=== PATIENT | female | born 1950 | race Caucasian/White ===

== ENCOUNTER → 2021-09-23 14:47 | Outpatient (BNVA) | payer MEDICARE, OTHER, SELFPAY | PROVIDERS: Family Provider Family Medicine; Visit Provider Family Medicine | DX: E78.5 Hyperlipidemia, unspecified (principal); E03.9 Hypothyroidism, unspecified | CPT/HCPCS: 80053; 80061; 84443; 85025 ==

== ENCOUNTER → 2021-10-19 15:49 | Outpatient (BNVA) | payer MEDICARE, OTHER, SELFPAY | PROVIDERS: Family Provider Family Medicine; PCP Family Medicine; Visit Provider Family Medicine | DX: F33.42 Major depressive disorder, recurrent, in full remission (principal); E78.5 Hyperlipidemia, unspecified; E03.9 Hypothyroidism, unspecified | CPT/HCPCS: 80053; 80061; 84443 ==

== ENCOUNTER → 2021-11-04 09:29 | Outpatient (BNVA) | payer MEDICARE, OTHER, SELFPAY | PROVIDERS: Family Provider Family Medicine; PCP Family Medicine; Referring Provider Family Medicine; Visit Provider Surgery | DX: Z12.11 Encounter for screening for malignant neoplasm of colon (principal) | CPT/HCPCS: 99024 ==

== ENCOUNTER 2021-11-16 15:30 | Outpatient (CLI) | payer MEDICARE, OTHER, SELFPAY ==
--- NOTE | 2021-11-16 15:38 | MM_ITS ---
WS: [id number] BILATERAL 3D TOMOSYNTHESIS DIGITAL SCREENING MAMMOGRAPHY WITH CAD CLINICAL INFORMATION: SCREEN HISTORY: Screening mammogram. No current complaints. COMPARISON: TECHNIQUE: Bilateral CC and MLO views. FINDINGS: Scattered fibroglandular densities bilaterally. Punctate and lucent centered calcifications. No suspi cious focal mass, asymmetry, calcifications, or architectural distortion. No evidence of malignancy. MM/[place] [id number] IMPRESSION: BI-RADS: 2-Benign FOLLOW UP: 1 Year Follow-up Recommend return to annual screening mammography.
== END 2021-11-16 15:31 | disposition home or self-care (01) ==
LOC: RAD 15:34
PROVIDERS: PCP Family Medicine; Visit Provider Family Medicine
DX: Z12.31 Encounter for screening mammogram for malignant neoplasm of breast (principal)
CPT/HCPCS: 77063; 77067

== ENCOUNTER 2021-12-08 08:08 | Day surgery (SDC) | payer MEDICARE, OTHER, SELFPAY ==
[2021-12-07 08:32] VITALS: BMI 27.8
[2021-12-08 08:35] VITALS: BP 142/83; PULSE 66; RESP 18; TEMP 36.3; O2SAT 98
[2021-12-08] MEDS: sodium chloride 0.9% 1,000 ML 30 ML IV (08:43)
--- NOTE | 2021-12-08 08:44 | P.HP_ITS ---
Providers/Chief Complaint Primary Care Provider: Lacey Manzano DO Chief Complaint: Need for screening colonoscopy History of Present Illness Muna Lynn is a 71 year old female who presents for her 10-year screening colonoscopy. She has no complaints. Review of Systems General: Reports: 10 or more systems reviewed and unremarkable except in HPI and below Medications/Allergies Home Medications Medication Instructions Recorded Confirmed Last Taken Type divalproex 250 mg tablet,delayed 250 mg PO DAILY #90 tab 06/24/21 12/08/21 12/07/21 Rx release nystatin 100,000 unit/gram topical 1 applic TOPICAL BID #60 g 09/23/21 12/08/21 12/07/21 Rx powder paroxetine HCl 20 mg tablet (Paxil) 20 mg PO DAILY #90 tab 10/19/21 12/08/21 12/07/21 Rx levothyroxine 75 mcg capsule 75 mcg PO DAILY #90 cap 10/22/21 12/08/21 12/07/21 Rx rosuvastatin 10 mg tablet 10 mg PO DAILY #90 tab 10/22/21 12/08/21 12/07/21 Rx Allergies Allergy/AdvReac Type Severity Reaction Status Date / Time Penicillins Allergy Mild ALGY-Rash Verified 12/08/21 08:29 Sulfa (Sulfonamide Allergy Mild ALGY-Rash Verified 12/08/21 08:29 Antibiotics) adhesive tape Allergy BLISTERS Verified 12/08/21 08:29 PFSH Acute 2 PFSH: Medical History Depression Dyslipidemia Hx of urethral stricture Hypothyroidism Onychomycosis Family History Father Stroke Hypertension Social History Smoking and tobacco status: never smoked Second hand smoke exposure: No Alcohol intake: former Vitals/I&O/Wt Last Vital Signs Temp 97.3 F L 12/08/21 08:35 Pulse 66 12/08/21 08:35 Resp 18 12/08/21 08:35 BP 142/83 12/08/21 08:35 Pulse Ox 98 12/08/21 08:35 Weight last 48 hrs Weight 178 lb Physical Exam Narrative: General : Patient is well developed , no acute distress, oriented x3 Head : Normal cephalic, a-traumatic. Ears : Pinnae and external canal are normal. Hearing is normal. Eyes : PERRLA, Sclera and injection are normal. No conjunctival discharge. Nose : Mucous membranes are without erythema. Throat : buccal mucosa is normal, gums are without significant recession or hypertrophy. Lungs : Equal chest rise bilaterally, no use of accessory muscles, trachea is midline. Cor : Rate and rhythm are normal. Abdomen : Soft, ND, NT, no g/r/m Extremities : No edema, no cyanosis or clubbing, dorsalis pedis pulses are present bilaterally, non-tender to palpation of calves. Upper extremities are normal bilaterally. Back : non-tender to palpation, no CVA tenderness. Neuro : CN II - XII intact, Upper and lower extremities have equal and full strength A&P Assessment and plan (1) Colon cancer screening: Status: Acute Plan Colonoscopy The risks and benefits of the procedure, including bleeding, infection, i ntestinal perforation requiring surgery, missed lesion, or explained to the patient. He is understanding of the risks and wishes to proceed. Attestations Medical Necessity Statement*: Patient will be discharged Coding Level of Care Code Acute Site Foreman for g Fwd Diagnoses Colon cancer screening Z12.11
--- NOTE | 2021-12-08 08:57 | ANES.PREANE2 ---
Pre-Anesthetic Assessment Height/Weight: Height 1.7 m Weight 80.739 kg Temp Pulse Resp BP Pulse Ox 97.3 F L 66 18 142/83 98 12/08/21 08:35 12/08/21 08:35 12/08/21 08:35 12/08/21 08:35 12/08/21 08:35 Operation Date: 12/08/21 09:15 Proposed Procedures p [id number],Z12.11(Not Applicable) - Tito Chadwick DO Familial anesthetic complications: None Was Beta Lucretia taken within 24 hours: N/A Was Clonidine taken within 24 hours: N/A Last intake: Intake Last Liquid Date 12/07/21 Last Liquid Time 22:00 Last Solid Date 12/06/21 Last Solid Time 20:00 Social No alcohol and No tobacco Exam alert, oriented x 3, clear to auscultation bilaterally and regular rate & rhythm Airway Mallampati: Class II Dentition: full Metabolic Hyperlipidemia and Thyroid Disease Anesthetic Plan ASA status: 2 Anesthesia: MAC Medications/Allergies Home Medications Medication Instructions Recorded Confirmed Last Taken Type divalproex 250 mg tablet,delayed 250 mg PO DAILY #90 tab 06/24/21 12/08/21 12/07/21 Rx release nystatin 100,000 unit/gram topical 1 applic TOPICAL BID #60 g 09/23/21 12/08/21 12/07/21 Rx powder paroxetine HCl 20 mg tablet (Paxil) 20 mg PO DAILY #90 tab 10/19/21 12/08/21 12/07/21 Rx levothyroxine 75 mcg capsule 75 mcg PO DAILY #90 cap 10/22/21 12/08/21 12/07/21 Rx rosuvastatin 10 mg tablet 10 mg PO DAILY #90 tab 10/22/21 12/08/21 12/07/21 Rx Allergies Allergy/AdvReac Type Severity Reaction Status Date / Time Penicillins Allergy Mild ALGY-Rash Verified 12/08/21 08:29 Sulfa (Sulfonamide Allergy Mild ALGY-Rash Verified 12/08/21 08:29 Antibiotics) adhesive tape Allergy BLISTERS Verified 12/08/21 08:29 Current Medications Generic Name Dose Route Start Last Admin Trade Name Freq PRN Reason Stop Dose Admin Sodium Chloride 1,000 mls @ 30 mls/hr 12/08/21 08:45 12/08/21 08:43 Sodium Chloride 0.9% IV 12/09/21 08:44 30 mls/hr .Q24H DONATO Administration PFSH Anesthesia Medical History Depression Dyslipidemia Hx of urethral stricture Hypothyroidism Onychomycosis Family History Father Stroke Hypertension Social History Smoking and tobacco status: never smoked Second hand smoke exposure: No Alcohol intake: former Data Anesthesia Cardiac Studies: No Data to Display
[2021-12-08 09:40] VITALS: BP 139/70; PULSE 55; RESP 17; TEMP 36.2; O2SAT 95
--- NOTE | 2021-12-08 09:40 | ANE.PACU2 ---
Inpatient post-anesthesia follow up: Airway intact: Yes Vital signs: Temperature 97.3 F Pulse Rate 66 Respiratory Rate 18 Blood Pressure 142/83 Pulse Oximetry 98 Oxygen Delivery Me thod Room Air Oxygen Flow Rate Fraction of Inspir ed Oxygen Hydration adequate: Yes Nausea and vomiting: No Pain level: 1 Mental status: Baseline
[2021-12-08 09:48] VITALS: BP 126/68; PULSE 54; RESP 16; O2SAT 94
[2021-12-08 09:56] VITALS: BP 155/76; PULSE 57; RESP 16; O2SAT 98
== END 2021-12-08 10:20 | disposition home or self-care (01) ==
PROVIDERS: PCP Family Medicine; Visit Provider Surgery
PROC: 0DJD8ZZ Inspection of Lower Intestinal Tract, Via Natural or Artificial Opening Endoscopic (ICD-10-PCS; CPT 45378; principal; 2021-12-08 09:15)
DX: Z12.11 Encounter for screening for malignant neoplasm of colon (principal); F32.9 Major depressive disorder, single episode, unspecified; E78.5 Hyperlipidemia, unspecified; E03.9 Hypothyroidism, unspecified; Z82.49 Family history of ischemic heart disease and other diseases of the circulatory system; Z82.3 Family history of stroke
CPT/HCPCS: G0121; J2704; J7030

== ENCOUNTER 2022-05-04 06:00 | Outpatient (RCR) | payer MEDICARE, OTHER, SELFPAY | END 2022-05-04 23:59 | disposition home or self-care (01) | LOC: SPT 06:00 | PROVIDERS: PCP Family Medicine; Visit Provider Family Medicine | DX: H81.10 Benign paroxysmal vertigo, unspecified ear (principal) | CPT/HCPCS: 95992; 97161 ==

== ENCOUNTER 2022-05-11 15:03 | Outpatient (CLI) | payer MEDICARE, OTHER, SELFPAY ==
--- NOTE | 2022-05-11 15:30 | XR_ITS ---
WS: [id number] DEXA (DUAL ENERGY X-RAY ABSORPTIOMETRY) Bone mineral density was performed using a Alticast machine. HISTORY: menopausal COMPARISON: 06/21/2017 Lumbar spine BMD (L1-L4): 1.073 g/cm2 T score: -0.9 Z score: 0.4 Total hip BMD: Left: 0.751 g/cm2. T score: -2.0 Z score: -0.7 Right: 0.771 g/cm2. T score: -1.9 Z score: -0.5 10 year probability of a major osteoporotic fracture is 25.8%. Compared to the prior study from 06/21/2017. Lumbar spine bone mineral density has increased by 4.2%. Bilateral hips bone mineral density has decrease by 4.2%. XR/XR DEXA axial skeleton* [id number] IMPRESSION: OSTEOPENIA based upon the WHO classification for females. Significant decrease in bone mineral density within the hips since the prior . Bone mineral density within the lumbar spine has increased significantly.
== END 2022-05-11 15:04 | disposition home or self-care (01) ==
LOC: RAD 15:03
PROVIDERS: PCP Family Medicine; Visit Provider Family Medicine
DX: Z78.0 Asymptomatic menopausal state (principal); M85.80 Other specified disorders of bone density and structure, unspecified site
CPT/HCPCS: 77080

== ENCOUNTER 2022-12-20 10:00 | Outpatient (CLI) | payer MEDICARE, OTHER, SELFPAY ==
--- NOTE | 2022-12-20 10:21 | MM_ITS ---
WS: [id number] BILATERAL 3D TOMOSYNTHESIS DIGITAL SCREENING MAMMOGRAPHY WITH CAD CLINICAL INFORMATION: SCREENING HISTORY: Screening mammogram. No current complaints. COMPARISON: 2021 TECHNIQUE: Bilateral CC and MLO views. FINDINGS: Scattered fibroglandular densities bilaterally. No suspicious focal mass, asymmetry, calcifications, or architectural distortion. No evidence of malignancy. Punctate and lucent centered calcifications. Vascular and secretory calcifications. MM/[place] [id number] IMPRESSION: BI-RADS: 2-Benign FOLLOW UP: 1 Year Follow-up Recommend return to annual screening mammography.
== END 2022-12-20 10:01 | disposition home or self-care (01) ==
LOC: RAD 10:05 → MOBLMAM 10:21
PROVIDERS: PCP Family Medicine; Visit Provider Family Medicine
DX: Z12.31 Encounter for screening mammogram for malignant neoplasm of breast (principal)
CPT/HCPCS: 77063; 77067

== ENCOUNTER → 2023-01-20 10:36 | Outpatient (BNVA) | payer MEDICARE, OTHER, SELFPAY | PROVIDERS: PCP Family Medicine | DX: E78.5 Hyperlipidemia, unspecified (principal); E03.9 Hypothyroidism, unspecified; H81.10 Benign paroxysmal vertigo, unspecified ear; Z12.11 Encounter for screening for malignant neoplasm of colon; Z76.89 Persons encountering health services in other specified circumstances | CPT/HCPCS: 80053; 80061; 84443; 85025 ==

== ENCOUNTER → 2023-07-25 13:39 | Outpatient (BNVA) | payer MEDICARE, OTHER, SELFPAY | PROVIDERS: PCP Family Medicine; Visit Provider Family Medicine | DX: E03.9 Hypothyroidism, unspecified (principal) | CPT/HCPCS: 84443 ==

== ENCOUNTER 2023-11-13 13:42 | Outpatient (CLI) | payer MEDICARE, OTHER, SELFPAY ==
--- NOTE | 2023-11-13 14:00 | MM_ITS ---
WS: [id number] BILATERAL 3D TOMOSYNTHESIS DIGITAL DIAGNOSTIC MAMMOGRAPHY WITH CAD CLINICAL INFORMATION: breast mass HISTORY: Diagnostic mammogram. RIGHT breast lump COMPARISON: 2022 TECHNIQUE: Bilateral CC, ML, and MLO views. FINDINGS: Scattered fibroglandular densities bilaterally. Incidental punctate and lucent centered calcification s. Breast parenchymal pattern is unchanged compared to previous. Spot compression views of the deep RIGHT axilla demonstrates enlarged lymph nodes. Ultrasound describ ed below. ULTRASOUND BREAST RIGHT TECHNIQUE: Ultrasound right breast focused area of concern. CLINICAL INFORMATION: breast mass FINDINGS: Ultrasound of the RIGHT axilla in the area of concern demonstrates numerous hypoechoic enlarged lymph nodes with a suspicious appearance. Replacement of the normal fatty hilum. Largest lymph node measur es 3.4 x 3.2 x 2.2 cm. Recommend further evaluation with ultrasound-guided biopsy. MM/[place] [id number] IMPRESSION: BI-RADS: 4-Suspicious Finding-Biopsy Should Be Considered FOLLOW UP: US Guided Biopsy Recommended Recommend ultrasound-guided biopsy of the suspicious enlarged RIGHT axillary ly mph nodes
--- NOTE | 2023-11-13 14:30 | US_ITS ---
WS: [id number] BILATERAL 3D TOMOSYNTHESIS DIGITAL DIAGNOSTIC MAMMOGRAPHY WITH CAD CLINICAL INFORMATION: breast mass HISTORY: Diagnostic mammogram. RIGHT breast lump COMPARISON: 2022 TECHNIQUE: Bilateral CC, ML, and MLO views. FINDINGS: Scattered fibroglandular densities bilaterally. Incidental punctate and lucent centered calcification s. Breast parenchymal pattern is unchanged compared to previous. Spot compression views of the deep RIGHT axilla demonstrates enlarged lymph nodes. Ultrasound describ ed below. ULTRASOUND BREAST RIGHT TECHNIQUE: Ultrasound right breast focused area of concern. CLINICAL INFORMATION: breast mass FINDINGS: Ultrasound of the RIGHT axilla in the area of concern demonstrates numerous hypoechoic enlarged lymph nodes with a suspicious appearance. Replacement of the normal fatty hilum. Largest lymph node measur es 3.4 x 3.2 x 2.2 cm. Recommend further evaluation with ultrasound-guided biopsy. US/US breast RT limited* [id number] IMPRESSION: BI-RADS: 4-Suspicious Finding-Biopsy Should Be Considered FOLLOW UP: US Guided Biopsy Recommended Recommend ultrasound-guided biopsy of the suspicious enlarged RIGHT axillary ly mph nodes
== END 2023-11-13 13:43 | disposition home or self-care (01) ==
LOC: RAD 13:42
PROVIDERS: PCP Family Medicine; Visit Provider Family Medicine
DX: N63.11 Unspecified lump in the right breast, upper outer quadrant (principal)
CPT/HCPCS: 76642; 77062; G0279

== ENCOUNTER → 2023-12-05 14:41 | Outpatient (BNVA) | payer MEDICARE, OTHER, SELFPAY | PROVIDERS: PCP Family Medicine; Visit Provider Nurse Practitioner Family | DX: R39.9 Unspecified symptoms and signs involving the genitourinary system (principal); R31.1 Benign essential microscopic hematuria; R30.0 Dysuria | CPT/HCPCS: 81000; 87086 ==

== ENCOUNTER 2023-12-06 12:39 | Inpatient (IN) | payer MEDICARE, OTHER, SELFPAY ==
[2023-12-06] VITALS (19 sets, daily range): BP systolic 110–161; BP diastolic 74–96; PULSE 87–114; RESP 12–26; TEMP 36.5–36.9; O2SAT 94–100; BMI 24.3
--- NOTE | 2023-12-06 12:53 | XR_ITS ---
WS: [id number] XR chest 1V portable [id number] REASON FOR EXAM: dyspnea/cough FINDINGS: Mild tortuosity of the thoracic aorta. Normal heart size. Calcified granulomas disease bilaterally. No acute pulmonary parenchymal or pleural abnormality is identified. 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 Moderate degenerative spondylosis in the mid and lower thoracic spine. XR/XR chest 1V portable [id number] IMPRESSION: No acute chest abnormality.
--- NOTE | 2023-12-06 12:59 | CTR_ITS ---
PROCEDURE INFORMATION: Exam: CT Head Without Contrast Exam date and time: 12/06/2023 12:57 PM Age: 73 years old Clinical indication: Stroke-like symptoms; Altered mental status/memory loss and speech disturbance; Additional info: Acute symptoms of stroke TECHNIQUE: Imaging protocol: Computed tomography of the head without contrast. Radiation optimization: All CT scans at this facility use at least one of these dose optimization techniques: automated exposure control; mA and/or kV adjustment per patient size (includes targeted exams where dose is matched to clinical indication); or iterative reconstruction. Other technique: STROKE PROTOCOL was implemented. COMPARISON: No relevant prior studies available. RADIATION DOSE METRICS: Total DLP (mGy-cm): 1208 FINDINGS: Brain: Normal. No hemorrhage. Unremarkable white matter. No mass effect or acute infarct. Cerebral ventricles: No ventriculomegaly. No midline shift. Paranasal sinuses: Visualized sinuses are unremarkable. No fluid levels. Mastoid air cells: Visualized mastoid air cells are well aerated. Bones: Unremarkable. No acute fracture. Soft tissues: Unremarkable. CT/CT head thrombolytic [id number] IMPRESSION: No acute intracranial abnormality. ASSESSMENT: ASPECTS ([place] Stroke Program Early CT Score) is 10.
--- NOTE | 2023-12-06 13:06 | ECG_ITS ---
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 Measurements Intervals [place] Rate: 91 P: 70 IA: 146 QRS: 48 QRSD: 87 T: 47 QT: 387 QTc: 477 Interpretive Statements SINUS RHYTHM SEPTAL MYOCARDIAL INFARCTION , OF INDETERMINATE AGE [40+ ms Q WAVE IN V1/V2] No previous ECG available for comparison Electronically Signed On 12-06-2023 19:39:06 CDT by Ok Huffman M.D. [email or web address]
[2023-12-06 13:12] LABS: Glucose Point of Care 239 mg/dL (70-110)
[2023-12-06 13:17] LABS: Basophils # 0.1 10^3/uL (0.0-0.1); Basophils % 0.4 %; Eosinophils # 0.1 10^3/uL (0.0-0.8); Eosinophils % 0.4 %; Hematocrit 52.6 % (36-47); Lymphocytes # 2.5 10^3/uL (0.8-4.8); Lymphocytes % 15.1 %; Mean Corpuscular HGB Conc 32.5 g/dL (30-55); Mean Corpuscular Hemoglobin 27.4 pg (27-33); Mean Corpuscular Volume 84.3 fl (85-98); Mean Platelet Volume 11.4 fL (7.4-10.4); Monocytes # 1.1 10^3/uL (0.2-0.9); Monocytes % 6.5 %; Neutrophils # 12.72 10^3/uL (1.8-7.7); Neutrophils % 77.1 %; Nucleated Red Blood Cells % 0 %; Platelet Count 161 10^3/cmm (157-399); Red Blood Count 6.24 10^6/uL (3.85-5.65); Red Cell Distribution Width 14.9 % (12.1-15.1); White Blood Count 16.49 10^3/uL (3.29-11.43)
--- NOTE | 2023-12-06 13:28 | ED_ITS ---
HPI - Weakness 2 General: Chief complaint: Weakness Stated complaint: Onset of weakness Time Seen by Provider: 12/06/23 12:51 Source: patient Mode of arrival: EMS History of Present Illness: 73-year-old female presents emergency ro om with complaints of confusion and generalized weakness began shortly after patient had taken some medicine she is unsure of what medication she took initially a stroke alert was called in the field. When seen the patient in the CT room her stroke score is 0. She is somewhat confused however. Later and I reevaluated the patient her daughter was at the bedside. She has not been feeling well the last several days has been laying in bed the last couple of days. She had been seen in urgent care clinic they thought she might have a kidney stone and bladder infection she started on tamsulosin and Macrobid but she is only taken a dose or 2 of these. Earlier she had trouble finding words and completing sentences that had resolved now. She denies any chest pain at this time does have some right flank pain and has had difficulty with urination. MD Complaint: generalized weakness Duration: constant Location: generalized Relieving factors: none Exacerbating factors: none Associated symptoms: Denies chest pain, chills, confusion, melena, decreased appetite, diaphoresis, dysuria, easy bruising, fever(s), headache(s), myalgias, nausea, rash, short of breath, syncope or vomiting Review of Systems 2 Const: Denies: fever(s), chills or diaphoresis Card: Denies: chest pain or syncope Resp: Denies: dyspnea GI: Denies: abdominal pain, nausea, vomiting or melena : Denies: dysuria, urinary frequency or urinary urgency Musc: Denies: neck pain or back pain Skin/Breast: Denies: rash Neuro: Denies: headache(s) or confusion Neftali/Lymph: Denies: easy bruising PFSH ED 2 PFSH: Medical History Renal insufficiency Adrenal mass Liver mass Hx of urethral stricture Dyslipidemia Depression Hypothyroidism Onychomycosis Family History Father Stroke Hypertension Social History Smoking and tobacco/nicotine status: unknown if used tobacco/nicotine Second hand smoke exposure: No Alcohol intake: former Substance/Drug Use: current Other substance/drug use details: Medical marijuana Physical Exam 2 Const: GENERAL APPEARANCE: cooperative and comfortable O RIENTATION/CONSCIOUSNESS: Yes awake, Yes oriented to person, Yes oriented to place and Yes oriented to time HENMT: COMMON NORMALS: normocephalic, atraumatic and hearing grossly normal bilaterally HEAD & SCALP: normocephalic and atraumatic Resp: COMMON NORMALS: normal respiratory effort, No retractions, No use of accessory muscles and clear to auscultation bilaterally AUSCULTATION: clear to auscultation bilaterally Cardio: COMMON NORMALS: regular rate, regular rhythm and No murmurs present (Cardio) RATE: regular rate RHYTHM: regular rhythm GI: COMMON NORMALS: Soft to palpation and No hepatosplenomegaly present A USCULTATION: Yes normoactive bowel sounds PALPATION: Yes Soft to palpation, No Tenderness to palpation present (GI), No Guarding due to palpation present (GI) and Yes No hepatosplenomegaly present Extremity: COMMON NORMALS: normal to inspection, capillary refill normal, no clubbing, cyanosis or edema, no calf tenderness and no pedal edema Neuro: SENSORIUM/ORIENTATION: Yes oriented to person, Yes oriented to place and Yes oriented to time Skin: COMMON NORMALS: no rashes or lesions noted GENERAL SKIN EXAM: no rashes or lesions noted Course 2 Vital Signs: Vital signs: Vital Signs Temperature 98.4 F 12/11/23 04:00 Pulse Rate 68 12/11/23 05:50 Respiratory Rate 17 12/11/23 04:00 Blood Pressure 148/82 12/11/23 04:00 Pulse Oximetry 96 12/11/23 04:00 Oxygen Delivery Me thod Room Air 12/11/23 04:00 MDM - Weakness Medical Decision Making Ling Hawk patient came in as a possible stroke alert however she does not have any deficits does not meet criteria for any thrombolytics. She may have had a TIA given report of these syncopal like episodes loss of consciousness and difficulty with word finding although by the time we seen her this had resolved. Her EKG did not show acute ST changes, one EKG that showed questionable atrial fibrillation with varying P morphology and QRS is changing. There is Q waves in V1 and 2. She denies any chest pain but does have a markedly elevated troponin of the first troponin being 587. Her second 1 was 460 with a delta of -126. She denies having any chest pain at any time. Her creatinine is slightly elevated from baseline at 1.2. Her lactic acid is also elevated. She was given a fluid bolus blood cultures on discharge on initial antibiotics we also checked a tick panel. CT shows Large mass in the liver as well as edematous nodules in the adrenal glands there is also a right axillary node. The axillary node was known and was actually scheduled to be biopsied but has not yet been biopsied. Discussed with hospitalist will admit due to concern for possible sepsis as well as elevated troponin. The CT was done as a CT a for PE with abdominal and pelvis follow-through there was no evidence of pulmonary embolism. Antibiotics have been initiated. As well as cultures. Discussed with hospitalist orders written. Hospitalist also asked that we order a tick panel which was done. Medical Records I reviewed the patient's medical records. Lab Data I reviewed the patient's lab results. 12/11/23 04:17 12/11/23 04:17 Radiology Impressions Chest X-Ray 12/06/23 12:53 IMPRESSION: No acute chest abnormality. Head CT 12/06/23 12:59 IMPRESSION: No acute intracranial abnormality. ASSESSMENT: ASPECTS (Emilie Stroke Program Early CT Score) is 10. Chest/Abdomen/Pelvis CT 12/06/23 14:05 IMPRESSION: Malignant adenopathy in the right axilla IMPRESSION: 1. Large area of mass effect involving the liver highly suspicious for infiltrating neoplasm 2. Edematous nodules involving both adrenal glands suggesting metastatic disease Liver Ultrasound 12/06/23 20:09 IMPRESSION: 1. No hepatic mass identified, as clinically questioned. Further evaluation with contrast enhanced abdomen MRI should be considered in the adequate clinical setting. 2. Subcentimeter gallbladder polyp versus inspissated sludge. Head MRI 12/08/23 06:00 IMPRESSION: 1. No evidence of restricted diffusion to suggest acute ischemia. 2. No hemosiderin on the susceptibly weighted images. 3. Mild small vessel changes with mild parenchymal volume loss. 4. No evidence of enhancing intracranial metastatic disease. Abdomen MRI 12/09/23 11:00 IMPRESSION: 1. Poorly defined linear area in the right hepatic lobe with peripheral enhancement on the delayed images. Findings can be related to infection versus metastasis. 2. Stable right adrenal nodule. COMMENTS: Consistent with the [place] [employer]'s Incidental Findings Committee white paper (J Am Jayesh Radiol 2018): Any incidental renal lesion less than 1 cm or classified as too small to characterize, or any incidental cystic renal lesion characterized as simple-appearing, is likely benign. No follow-up imaging is recommended for these lesions per consensus recommendations based on imaging criteria. Laboratory Results WBC 16.49 10^3/uL (3.29-11.43) H 12/06/23 13:10 RBC 6.24 10^6/uL (3.85-5.65) H 12/06/23 13:10 Hgb 17.10 g/dL (11.27-16.99) H 12/06/23 13:10 Hct 52.6 % (36-47) H 12/06/23 13:10 MCV 84.3 fl (85-98) L 12/06/23 13:10 MCH 27.4 pg (27-33) 12/06/23 13:10 MCHC 32.5 g/dL (30-55) 12/06/23 13:10 RDW 14.9 % (12.1-15.1) 12/06/23 13:10 Plt Count 161 10^3/cmm (157-399) 12/06/23 13:10 MPV 11.4 fL (7.4-10.4) H 12/06/23 13:10 Neut % (Auto) 77.1 % 12/06/23 13:10 Lymph % (Auto) 15.1 % 12/06/23 13:10 [place] % (Auto) 6.5 % 12/06/23 13:10 Eos % (Auto) 0.4 % 12/06/23 13:10 Baso % (Auto) 0.4 % 12/06/23 13:10 Neut # (Auto) 12.72 10^3/uL (1.8-7.7) H 12/06/23 13:10 Lymph # (Auto) 2.5 10^3/uL (0.8-4.8) 12/06/23 13:10 [place] # (Auto) 1.1 10^3/uL (0.2-0.9) H 12/06/23 13:10 Eos # (Auto) 0.1 10^3/uL (0.0-0.8) 12/06/23 13:10 Baso # (Auto) 0.1 10^3/uL (0.0-0.1) 12/06/23 13:10 Nucleated RBC % (auto) 0 % 12/06/23 13:10 Nucleated RBCs # 0.0 /100WBC 12/06/23 13:10 PT 15.60 SECONDS (12.1-14.9) H 12/06/23 13:10 INR 1.20 (0.8-1.2) 12/06/23 13:10 APTT 25.7 SECONDS (23.9-36.7) 12/06/23 13:10 Specimen Type Arterial 12/06/23 14:02 Sample Site Radial, left 12/06/23 14:02 ABG pH 7.59 (7.35-7.45) H* 12/06/23 14:02 ABG pCO2 26.0 mmHg (35-45) L 12/06/23 14:02 ABG pO2 92.5 mmHg (80.0-100.0) 12/06/23 14:02 ABG PO2/FiO2 Ratio 440 12/06/23 14:02 ABG HCO3 24.9 mmol/L (22-26) 12/06/23 14:02 ABG O2 Saturation 97.4 12/06/23 14:02 ABG Base Excess 4.7 mmol/L (-2.0-2.0) H 12/06/23 14:02 Curry Test Pos 12/06/23 14:02 A-a O2 Gradient 3.0 mmHg (5-10) L 12/06/23 14:02 Hematocrit 52.3 % (37-47) H 12/06/23 14:02 Hgb O2 Saturation 96.9 % (95-100) 12/06/23 14:02 Carboxyhemoglobin 0.5 %THgb (0.4-20.1) 12/06/23 14:02 Methemoglobin 0.0 % (0.4-1.5) L 12/06/23 14:02 Total Hemoglobin 17.1 g/dL (12-16) H 12/06/23 14:02 Sodium 134.0 mmol/L (131-143) 12/06/23 14:02 Potassium 3.4 mmol/L (3.5-5.0) L 12/06/23 14:02 Glucose 176.0 mg/dL (70-115) H 12/06/23 14:02 Ionized Calcium 1.2 mmol/L (1.1-1.4) 12/06/23 14:02 O2 Delivery Device Room air 12/06/23 14:02 FiO2 21.0 % 12/06/23 14:02 Foley Artist ID [place] 12/06/23 14:02 Sodium 132 mmol/L (136-145) L 12/06/23 13:10 Potassium 4.2 mmol/L (3.5-5.1) 12/06/23 13:10 Chloride 91 mmol/L (98-107) L 12/06/23 13:10 Carbon Dioxide 25 mmol/L (22-29) 12/06/23 13:10 Anion Gap 20.2 (5-19) H 12/06/23 13:10 BUN 30 mg/dL (8-23) H 12/06/23 13:10 Creatinine 1.2 mg/dL (0.5-0.9) H 12/06/23 13:10 GFR Calculation Not Reportable 12/06/23 13:10 Glucose 255 mg/dL (65-115) H 12/06/23 13:10 POC Glucose 239 mg/dL (70-110) H 12/06/23 13:07 Calculated Osmolality 289 mOsm/kg (285-295) 12/06/23 13:10 Lactic Acid 5.0 mmol/L (0.5-2.2) H* 12/06/23 13:10 Lactic Acid (Sepsis) 3.3 mmol/L (0.5-2.2) H 12/06/23 16:09 Calcium 9.6 mg/dL (8.5-10.5) 12/06/23 13:10 Total Bilirubin 1.1 mg/dL (0.15-1.2) 12/06/23 13:10 AST 44 U/L (0-32) H 12/06/23 13:10 ALT 42 U/L (0-33) H 12/06/23 13:10 Alkaline Phosphatase 63 U/L (35-105) 12/06/23 13:10 Creatine Kinase 78 U/L (26-192) 12/06/23 13:10 Troponin T Baseline 587 ng/L (0-10) H* 12/06/23 13:10 Troponin T 120 Minute 460.9 ng/L (0-10) H 12/06/23 15:03 Delta Troponin T -126.1 ABS# (0-10) L 12/06/23 15:03 NT-Pro-B Natriuret Pep 78185 pg/mL (0-450) H 12/06/23 13:10 Total Protein 6.9 g/dL (6.6-8.7) 12/06/23 13:10 Albumin 3.6 g/dL (3.5-5.2) 12/06/23 13:10 Globulin 3.3 g/dL (1.3-4.6) 12/06/23 13:10 Lipase 23 U/L (13-60) 12/06/23 13:10 Random Cortisol 20.12 ug/dL (2.47-19.5) H 12/06/23 13:10 Urine Color Yellow (Yellow) 12/06/23 13:29 Urine Appearance Clear (CLEAR) 12/06/23 13:29 Urine pH 5 (5-7) 12/06/23 13:29 Ur Specific Shanks 1.020 (1.005-1.030) 12/06/23 13:29 Urine Protein 2+ (Negative) H 12/06/23 13:29 Urine Glucose (UA) Norm (Normal) 12/06/23 13:29 Urine Ketones 1+ (Negative) H 12/06/23 13:29 Urine Blood 3+ (Negative) H 12/06/23 13:29 Urine Nitrate Negative (Negative) 12/06/23 13:29 Urine Bilirubin Neg (Negative) 12/06/23 13:29 Urine Urobilinogen Norm mg/dL (Negative) 12/06/23 13:29 Ur Leukocyte Esterase Negative (Negative) 12/06/23 13:29 Urine RBC 0-4 /hpf (0-2) H 12/06/23 13:29 Urine WBC Rare /hpf (0-5) 12/06/23 13:29 Ur Squamous Epith Cells Rare /hpf (0-5) 12/06/23 13:29 Amorphous Sediment Not Reportable 07/03/24 13:29 Urine Bacteria Trace /hpf (NONE) 12/06/23 13:29 Urine Opiates Screen Negative ng/mL (Negative) 12/06/23 13:24 Ur Barbiturates Screen Negative ng/mL (Negative) 12/06/23 13:24 Ur Phencyclidine Scrn Negative ng/mL (Negative) 12/06/23 13:24 Ur Amphetamines Screen Negative ng/mL (Negative) 12/06/23 13:24 U Benzodiazepines Scrn Negative ng/mL (Negative) 12/06/23 13:24 Urine Cocaine Screen Negative ng/mL (Negative) 12/06/23 13:24 U Marijuana (THC) Screen Positive ng/mL (Negative) H 12/06/23 13:24 Serum Ketones Negative (Negative) 12/06/23 13:10 Lyme Ab (Western Blot) <0.90 index 12/06/23 16:40 Hepatitis A IgM Ab Non-reactive (Nonreactive) 12/06/23 13:10 Hep Bs Antigen Non-reactive (Nonreactive) 12/06/23 13:10 Hep B Core IgM Ab Non-reactive (Nonreactive) 12/06/23 13:10 Hepatitis C Antibody Non-reactive (Nonreactive) 12/06/23 13:10 All radiology interpretation(s) finalized by discharge Discharge Plan Discharge Patient Disposition: Admitted As Inpatient Admit Provider: Adrian Stone Clinical Impression: SIRS (systemic inflammatory response syndrome), Liver mass, Adrenal mass, Renal insufficiency, Episode of unresponsiveness, Word finding difficulty, Lactic acidosis, Troponin level elevated Condition: Stable Coding Level of Care Code ED [place] Supervisor for Marisol Rodriguez NIH stroke score NIHSS Level Of Consciousness - 1a: 0 Level Of Consciousness Questions - 1b: Both Correct Level Of Consciousness Commands - 1c: Both Correct Best Gaze - 2: Normal Visual [place] - 3: No Visual Loss Facial Palsy - 4: Normal Motor Arm Right - 5: No Drift Motor Arm Left - 5: No Drift Motor Leg Right - 6: No Drift Motor Leg Left - 6: No Drift Limb Ataxia - 7: Absent Sensory - 8: Normal Best Language - 9: No Aphasia Dysarthia - 10: Normal Extinction And Inattention - 11: 0 Score Total Score: 0
[2023-12-06 13:44] LABS: Alanine Aminotransferase 42 U/L (0-33); Albumin Level 3.6 g/dL (3.5-5.2); Alkaline Phosphatase 63 U/L (35-105); Anion Gap 20.2 (5-19); Aspartate Amino Transferase 44 U/L (0-32); Blood Urea Nitrogen 30 mg/dL (8-23); Calcium 9.6 mg/dL (8.5-10.5); Carbon Dioxide 25 mmol/L (22-29); Chloride 91 mmol/L (98-107); Creatine Phosphokinase 78 U/L (26-192); Creatinine Clr Calc Pharmacy 41.6183; Globulin 3.3 g/dL (1.3-4.6); Glucose 255 mg/dL (65-115); Lipase 23 U/L (13-60); Osmolality Calculated 289 mOsm/kg (285-295); Potassium 4.2 mmol/L (3.5-5.1); Sodium 132 mmol/L (136-145); Total Bilirubin 1.1 mg/dL (0.15-1.2); Total Protein 6.9 g/dL (6.6-8.7)
[2023-12-06 13:53] LABS: Troponin(5th) Baseline 587 ng/L (0-10)
--- NOTE | 2023-12-06 14:05 | CTR_ITS ---
PROCEDURE INFORMATION: Exam: CTA Chest With Contrast Exam date and time: 12/06/2023 2:45 PM Age: 73 years old Clinical indication: Abdominal pain; Patient HX: Elevated troponin, and flank pain; Additional info: Chest pain, abd pain TECHNIQUE: Imaging protocol: Computed tomographic angiography of the chest with contrast. Exam focused on the arteries. 3D rendering (Not supervised by radiologist): MIP and/or 3D reconstructed images were created by the technologist. Radiation optimization: All CT scans at this facility use at least one of these dose optimization techniques: automated exposure control; mA and/or kV adjustment per patient size (includes targeted exams where dose is matched to clinical indication); or iterative reconstruction. Contrast material: OMNI 350; Contrast volume: 100 ml; Contrast route: INTRAVENOUS (IV); COMPARISON: CR XR chest 1V portable [id number] 12/06/2023 1:09 PM RADIATION DOSE METRICS: Total DLP (mGy-cm): 299 FINDINGS: Pulmonary arteries: Normal. No pulmonary emboli. Aorta: Unremarkable. No aortic aneurysm. No aortic dissection. Lungs: Unremarkable. No consolidation. No masses. Pleural spaces: Unremarkable. No pneumothorax. No pleural effusion. Heart: Unremarkable. No cardiomegaly. No pericardial effusion. Lymph nodes: Multiple enlarged lymph nodes are noted in the right axilla the largest measuring 3.6 cm in diameter. Bones/joints: Unremarkable. No acute fracture. Soft tissues: See Lymph nodes finding. PROCEDURE INFORMATION: Exam: CT Abdomen And Pelvis With Contrast Exam date and time: 12/06/2023 2:45 PM Age: 73 years old Clinical indication: Abdominal pain; Patient HX: Elevated troponin, and flank pain; Additional info: Chest pain, abd pain TECHNIQUE: Imaging protocol: Computed tomography of the abdomen and pelvis with contrast. Radiation optimization: All CT scans at this facility use at least one of these dose optimization techniques: automated exposure control; mA and/or kV adjustment per patient size (includes targeted exams where dose is matched to clinical indication); or iterative reconstruction. Contrast material: OMNI 350; Contrast volume: 100 ml; Contrast route: INTRAVENOUS (IV); COMPARISON: CR XR chest 1V portable [id number] 12/06/2023 1:09 PM RADIATION DOSE METRICS: Total DLP (mGy-cm): 494 FINDINGS: Lungs: Lung bases are clear. No pleural effusion. Liver: There is a large poorly defined area of nodular low density involving the liver. The abnormality demonstrates a somewhat linear overall shape and extends from the dome of the liver inferiorly down into the medial segment of the left hepatic lobe. The abnormality measures 10.3 cm in overall length and shows a maximum width of 4 cm. Gallbladder and biliary ducts: Normal. No calcified stones. No ductal dilation. Pancreas: Normal. No ductal dilation. Spleen: Normal. No splenomegaly. Adrenal glands: There is a rounded 3.6 cm edematous mass involving the right adrenal gland. The left adrenal gland is also edematous and mildly enlarged. Kidneys and ureters: Normal. No hydronephrosis. Stomach and bowel: Unremarkable. No obstruction. No mucosal thickening. Appendix: No evidence of appendicitis. Intraperitoneal space: Unremarkable. No free air. No significant fluid collection. Vasculature: Unremarkable. No abdominal aortic aneurysm. Lymph nodes: Unremarkable. No enlarged lymph nodes. Urinary bladder: Unremarkable as visualized. Reproductive: Calcified uterine fibroids are noted in the uterus. Bones/joints: Unremarkable. No acute fracture. Soft tissues: Unremarkable. CT/CT angio chest w abd pel w con IMPRESSION: Malignant adenopathy in the right axilla IMPRESSION: 1. Large area of mass effect involving the liver highly suspicious for infiltrating neoplasm 2. Edematous nodules involving both adrenal glands suggesting metastatic disease
[2023-12-06 14:16] LABS: Partial Thromboplastin Time 25.7 SECONDS (23.9-36.7)
[2023-12-06 14:16] LABS: Arterial Blood Gas Hematocrit 52.3 % (37-47); Base Excess ABG 4.7 mmol/L (-2.0-2.0); Blood Gas Allen Test Pos; Blood Gas Sample Type Arterial; Carboxyhemoglobin 0.5 %THgb (0.4-20.1); HCO3 ABG 24.9 mmol/L (22-26); HGB O2 Sat 96.9 % (95-100); Ionized Calcium Level - ABG 1.2 mmol/L (1.1-1.4); Oxygen Saturation ABG 97.4; PO2 ABG 92.5 mmHg (80.0-100.0); Potassium Level - ABG 3.4 mmol/L (3.5-5.0); Total Hemoglobin 17.1 g/dL (12-16)
[2023-12-06 14:17] LABS: Blood Gas Operator Identificat MONRO; Blood Gas Sample Site Radial, left; Oxygen Device ROOM AIR; PO2 FiO2 Ratio Arterial Blood 440
[2023-12-06 14:18] LABS: ABG PH Result 7.59 (7.35-7.45)
[2023-12-06 14:22] LABS: Add Urine Microscopic? YES; Bilirubin Urine Neg (Negative); Blood Urine 3+ (Negative); Glucose Urine UA Norm (Normal); Ketones Urine 1+ (Negative); Leukocyte Esterase Urine Negative (Negative); Nitrate Urine Negative (Negative); Protein Urine 2+ (Negative); Urine Appearance Clear (CLEAR); Urine Color Yellow (Yellow); Urobilinogen Urine Norm (Negative); pH Urine 5 (5-7)
[2023-12-06 14:23] LABS: Bacteria Urine TRACE /hpf; RBC Urine 0-4 /hpf (0-2); Squamous Epithelial Cell Urine RARE /hpf (0-5); WBC Urine RARE /hpf (0-5)
[2023-12-06 14:37] LABS: Ketone (Acetest) Serum Negative (Negative)
[2023-12-06 14:39] LABS: NT Pro B Type Natriuretic Pept 10542 pg/mL (0-450)
[2023-12-06] MEDS: sodium chloride 0.9% 1,000 ML 999 ML IV (14:40)
[2023-12-06 14:50] LABS: Amphetamines Screen Urine Negative (Negative); Barbiturates Screen Urine Negative (Negative); Benzodiazepines Screen Urine Negative (Negative); Cocaine Screen Urine Negative (Negative); Opiate Screen Urine Negative (Negative); PCP Screen Urine Negative (Negative); THC Screen Urine Positive (Negative)
[2023-12-06 15:03] LABS: Reflex Lactate Order REFLEX LACTIC ORDERD
--- NOTE | 2023-12-06 15:06 | ECG_ITS ---
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 Measurements Intervals [place] Rate: 101 P: 0 DC: 0 QRS: 71 QRSD: 93 T: 25 QT: 332 QTc: 431 Interpretive Statements Sinus tachycardia SEPTAL MYOCARDIAL INFARCTION , PROBABLY OLD [40+ ms Q WAVE IN V1/V2] Compared to ECG 12/06/2023 13:04:36 Sinus rhythm no longer present Myocardial infarct finding still present Electronically Signed On 12-06-2023 19:45:31 CDT by Ok Huffman M.D. [email or web address]
[2023-12-06] MEDS: levofloxacin-dextrose 5 % 750 MG/150 ML PREMIX 100 MG IV (15:12)
[2023-12-06 15:41] LABS: Troponin 5 2HR 460.9 ng/L (0-10); Troponin 5 2HR Delta -126.1 ABS# (0-10)
[2023-12-06 16:18] LABS: Cortisol Random 20.12 ug/dL (2.47-19.5)
[2023-12-06 16:31] LABS: Lactic Acid level (Lactate) 3.3 mmol/L (0.5-2.2)
--- NOTE | 2023-12-06 16:36 | USCV_ITS ---
Muna Lynn Age: 73 Gender: F : 1950 Exam Date: 12/06/2023 17:01 Ordering Phys: Michael Singletary DO Technologist: [place] [facility] [place]: trop BP: 120 / 80 HR: 92 Rhythm: Sinus Technical Quality: Technically difficult study MEASUREMENTS (Male / Female) Normal Values 2D ECHO LVOT Diameter 2.1 cm LV Ejection Fraction MOD 2C 58.0 % LV Ejection Fraction 2C AL 58.3 % LA Diameter 3.4 cm RA Systolic Volume 4C AL 15.7 ml RA Systolic Volume 4C MOD 15.0 ml LA Sys Volume AL 28.0 cm cubed LA Sys Volume Index AL 15.2 cm cubed/m squared Aorta at Sinotubular Diameter 2.1 cm IVC Diameter 1.5 cm DOPPLER AV Peak Velocity 233.0 cm/s LVOT Peak Velocity 109.0 cm/s AV Area Cont Eq vti 2.3 cm squared AV Area Cont Eq pk 1.6 cm squared MV Area PHT 5.1 cm squared Mitral E to A Ratio 0.7 TR Peak Velocity 244.0 cm/s TR Peak Gradient 23.8 mmHg PV Peak Velocity 125.0 cm/s FINDINGS Left Ventricle Technically poor quality study. Only good view is the apical view. The left ventricle is likely normal in size and function. Ejection fraction is about 60%. Grade 1 diastolic dysfunctionnormal left ventricular size, systolic function and wall thickness, with no regional wall motion abnormalities. Right Ventricle The right ventricle is normal in size and function. Right Atrium The right atrium is normal in size. Left Atrium The left atrium is normal in size. Mitral Valve Structurally normal mitral valve. Trace mitral valve regurgitation. Aortic Valve Structurally normal trileaflet aortic valve. Mild aortic valve regurgitation. Tricuspid Valve Structurally normal tricuspid valve. Pulmonic Valve Pulmonic valve not well visualized. Pericardium Normal pericardium without effusion. Aorta Normal ascending aorta dimension. IVC The inferior vena cava appears normal. CONCLUSIONS Technically poor quality study. Only good view is the apical view. The left ventricle is likely normal in size and function. Ejection fraction is about 60%. Grade 1 diastolic dysfunctionnormal left ventricular size, systolic function and wall thickness, with no regional wall motion abnormalities. Structurally normal mitral valve. Trace mitral valve regurgitation. Structurally normal trileaflet aortic valve. Mild aortic valve regurgitation. There are no prior echocardiogram studies to compare. Dr. Ok Huffman MD (Electronically Signed) Final Date: 06 December 2023 18:35 S
--- NOTE | 2023-12-06 18:12 | P.CONIM_ITS ---
Providers/Reason For Consult 2 Consulting Physician/Specialty*: Cardiovascular medicine Reason for Consult*: Elevated troponin Requesting Physician: Emergency room Attending Physician: Adrian Stone Primary Care Provider: Lacey Manzano DO History of Present Illness History of Present Illness Muna Lynn is a 73 year old female who has no known history of heart disease. She has been pretty healthy. She has dyslipidemia. She apparently was brought to the emergency room today because of confusion and generalized weakness. Initially a stroke alert was called in the field but clearly she was not having a stroke. According to her partner she was confused and not making any sense. Her partner is not here this evening when I see her. The emergency room physician told me that the patient had not been feeling well for a while. She has not had any chest pain. She does not have any known heart disease. Upon her arrival in the emergency room she was subjected to a battery of tests that included laboratories. Her white cell count is 16.4. Her hemoglobin and hematocrit are 17 and 52. Her glucose was 176 and then 255. Her potassium was 3.4. Lactic acid is 5. Her BUN and creatinine are 30 and 1.2. Patient was not having any chest pain but of course troponins were obtained. They are 587 and 460. Her BNP is 10,542. Her chest x-ray was negative. A head CT was negative. She then got the requisite CT of the chest, abdomen and pelvis. There is a suspicious right axillary node that is thought to be a possible malignancy. She also has a mass in her liver and a mass in her right adrenal gland. Her left adrenal gland is mildly enlarged and edematous. Her EKGs show sinus rhythm with poor R wave progression from leads V1 through V2 and minimal diffuse mild ST segment depression laterally. Review of Systems 2 Narrative: Review of systems is negative. Medications/Allergies Home Medications Medication Instructions Recorded Confirmed Last Taken Type calcium carbonate (Calcium 600) 600 mg PO DAILY 07/19/22 12/06/23 12/05/23 History cholecalciferol (vitamin D3) 25 25 mcg PO DAILY 07/19/22 12/06/23 12/05/23 History mcg (1,000 unit) capsule nitrofurantoin 100 mg PO Q12H 5 days #10 caps 12/05/23 12/06/23 12/06/23 Rx monohydrate/macrocrystals 100 mg capsule (Macrobid) tamsulosin 0.4 mg capsule (Flomax) 0.4 mg PO DAILY #20 caps 12/05/23 12/06/23 12/05/23 Rx divalproex 250 mg tablet,delayed 250 mg PO DAILY 12/06/23 12/06/23 12/05/23 History release levothyroxine 75 mcg tablet 75 mcg PO DAILY 12/06/23 12/06/23 12/05/23 History nystatin 100,000 unit/gram topical 1 applic topical BID PRN Skin 12/06/23 12/06/23 Unknown History powder (Nystop) Irritation paroxetine HCl 30 mg tablet 30 mg PO DAILY 12/06/23 12/06/23 12/05/23 History rosuvastatin 10 mg tablet 10 mg PO DAILY 12/06/23 12/06/23 12/05/23 History Allergies Allergy/AdvReac Type Severity Reaction Status Date / Time Penicillins Allergy Mild ALGY-Rash Verified 12/05/23 11:58 Sulfa (Sulfonamide Allergy Mild ALGY-Rash Verified 12/05/23 11:58 Antibiotics) adhesive tape Allergy BLISTERS Verified 12/05/23 11:58 PFSH Acute 2 PFSH: Medical History (Updated 12/06/23 @ 18:20 by Ok Huffman MD) Renal insufficiency Adrenal mass Liver mass Hx of urethral stricture Dyslipidemia Depression Hypothyroidism Onychomycosis Family History Father Stroke Hypertension Social History Smoking and tobacco/nicotine status: unknown if used tobacco/nicotine Second hand smoke exposure: No Alcohol intake: former Substance/Drug Use: current Other substance/drug use details: Medical marijuana Vitals/I&O/Wt Last Vital Signs Pulse 91 12/06/23 16:30 Resp 17 12/06/23 14:15 BP 161/96 12/06/23 16:30 Pulse Ox 99 12/06/23 16:30 O2 Del Method Room Air 12/06/23 16:24 12/06/23 12/06/23 12/06/23 06:59 14:59 22:59 Intake Total 1150 / 1150 Balance 1150 / 1150 Weight last 48 hrs Weight 155 lb Physical Exam 2 Narrative: GENERAL: In general she looks and feels comfortable today HEENT: Exam within normal limits. NECK: Supple without jugular vein distention. The carotid upstroke is normal without bruits. BACK: Exam normal. LUNGS: Clear. HEART: Regular rate and rhythm. ABDOMEN: Benign without organomegaly or tenderness. EXTREMITIES: No edema. NEUROLOGIC: Exam normal. SKIN: Unremarkable. Data 12/06/23 13:10 12/06/23 13:10 Micro: Microbiology 12/06/23 13:30 Blood Culture - Preliminary Blood SPECIMEN COLLECTED 12/06/23 13:30 Blood Culture - Preliminary Blood SPECIMEN COLLECTED A&P Assessment and plan (1) Dyslipidemia: (2) Liver mass: (3) Adrenal mass: (4) Renal insufficiency: Consult Attestations 2 Medical Necessity Statement: Seems to be more reasonable to focus on the mass in her liver and her adrenal gland and the 1 in her right axilla rather than the troponins. Her EKGs are unremarkable essentially and she is not having any chest pain and no symptoms to suggest angina. Once the potential neoplasm is delineated and a plan is agreed upon and then some form of cardiac testing could be initiated. I would start out with noninvasive testing. She has not been seen by the admitting physician yet. I am unaware as to whether she was told about these CT abnormalities. I explained their existence to her but told her that we did not yet know what they are. and Moderate Time for a total of 40 minutes, includes reviewing past or interval history, examining/interviewing patient, counseling patient/family/other support, updating patient/family/other support, discussing plan of care with staff, communicating with other healthcare providers and documenting encounter Diagnoses Dyslipidemia E78.5 Liver mass R16.0 Adrenal mass E27.8 Renal insufficiency N28.9
--- NOTE | 2023-12-06 19:43 | P.HP_ITS ---
Providers/Chief Complaint 2 Admitting Physician: Adrian Stone Primary Care Provider: Lacey Manzano DO Chief Complaint: Onset of weakness History of Present Illness Pleasant 73-year-old lady with hypothyroidism, HLD, in process of setting up lymph node biopsy after incidental finding on mammography and breast ultrasound with 3.4 x 3.2 x 2.2 cm enlargement mildly suspicious appearance in the right axilla was brought in for evaluation to ER today after at home her observed her to have an episode of unresponsiveness after ambulation, with gaze deviation, confusion, then with word finding difficulty, reportedly had an additional episode after EMS had arrived and to pick her up. She reportedly had started feeling unwell around Monday, was having malaise, leg, and has not really been up and around since then. Yesterday she had had some nausea but did not vomit. She is having chills, although they have been trying to measure her fever and did not report any. In ER initially stroke code was called, ER physician saw her and she went for CAT scan she was not found to have any focal deficits, of the head showed no acute intracranial abnormality. She did have a recent treatment for urinary tract infection and kidney stone with Macrobid and tamsulosin. They in ER without suggestion of UTI. She was noted to have leukocytosis of 16.5. Metabolic alkalosis, 7 point 11/28/1989 2.5. Mild SCOTTY, BUN 30, creatinine 1.2. Lactic acid 5. Mild transaminitis, AST 44, ALT 42. T. bili and alk phos normal. UDS positive for marijuana. Troponin came back 60 times abnormal at 587. 2-hour troponin at 461. NT proBNP 10,542. EKG with Q waves in V1 and V2. Second EKG appears to report atrial fibrillation, although she does have P waves before QRS's, although P waves have different quality. She and her state that she has some history of atrial fibrillation, he is not on aspirin or anticoagulation. The chest, abdomen pelvis obtained in ER showed a large poorly defined area of nodular glistening involving the liver. Abnormality demonstrating somewhat linear overall shape and extending abdominal living. To the medial segment of left hepatic lobe. 10.3 cm overall length, 4 cm width. Unremarkable gallbladder and biliary ducts. Additionally finding of carotid 3.6 cm edematous mass involving the right adrenal gland as well as left adrenal gland with edema and mild enlargement. Findings suggestive of metastatic disease. Knees are new findings for her. She states she otherwise already has an appointment for lymph node biopsy in the right axilla. Additionally she and her do report multiple tick bites. Review of Systems 2 Const: Reports: chills and malaise; Denies: fever(s) or body aches ENMT: Denies: throat pain or ear or mastoid pain Card: Reports: syncope; Denies: chest pain, edema or dyspnea on exertion Resp: Denies: dyspnea, productive cough, change in phlegm color or hemoptysis GI: Reports: abdominal pain (Some right flank/lower quadrant pain.) and nausea (Yesterday); Denies: vomiting, diarrhea, constipation, hematochezia or melena : Denies: flank pain, urinary frequency or hematuria Musc: Reports: back pain; Denies: joint swelling or joint redness Skin/Breast: Denies: rash or new lesions Neuro: Reports: difficulty communicating thoughts; Denies: headache(s), numbness in extremities, weakness in extremities, dizziness, confusion or seizure-like activity Endo: Denies: polyuria or polydipsia Medications/Allergies Home Medications Medication Instructions Recorded Confirmed Last Taken Type calcium carbonate (Calcium 600) 600 mg PO DAILY 07/19/22 12/06/23 12/05/23 History cholecalciferol (vitamin D3) 25 25 mcg PO DAILY 07/19/22 12/06/23 12/05/23 History mcg (1,000 unit) capsule nitrofurantoin 100 mg PO Q12H 5 days #10 caps 12/05/23 12/06/23 12/06/23 Rx monohydrate/macrocrystals 100 mg capsule (Macrobid) tamsulosin 0.4 mg capsule (Flomax) 0.4 mg PO DAILY #20 caps 12/05/23 12/06/23 12/05/23 Rx divalproex 250 mg tablet,delayed 250 mg PO DAILY 12/06/23 12/06/23 12/05/23 History release levothyroxine 75 mcg tablet 75 mcg PO DAILY 12/06/23 12/06/23 12/05/23 History nystatin 100,000 unit/gram topical 1 applic topical BID PRN Skin 12/06/23 12/06/23 Unknown History powder (Nystop) Irritation paroxetine HCl 30 mg tablet 30 mg PO DAILY 12/06/23 12/06/23 12/05/23 History rosuvastatin 10 mg tablet 10 mg PO DAILY 12/06/23 12/06/23 12/05/23 History Allergies Allergy/AdvReac Type Severity Reaction Status Date / Time Penicillins Allergy Mild ALGY-Rash Verified 12/05/23 11:58 Sulfa (Sulfonamide Allergy Mild ALGY-Rash Verified 12/05/23 11:58 Antibiotics) adhesive tape Allergy BLISTERS Verified 12/05/23 11:58 PFSH Acute 2 PFSH: Medical History Renal insufficiency Adrenal mass Liver mass Hx of urethral stricture Dyslipidemia Depression Hypothyroidism Onychomycosis Family History Father Stroke Hypertension Social History Smoking and tobacco/nicotine status: unknown if used tobacco/nicotine Second hand smoke exposure: No Alcohol intake: former Substance/Drug Use: current Other substance/drug use details: Medical marijuana Vitals/I&O/Wt Last Vital Signs Temp 97.7 F 12/06/23 19:29 Pulse 95 12/06/23 19:29 Resp 18 12/06/23 19:29 BP 148/74 12/06/23 19:29 Pulse Ox 96 12/06/23 19:29 O2 Del Method Room Air 12/06/23 18:01 12/06/23 12/06/23 12/06/23 06:59 14:59 22:59 Intake Total 1150 / 1150 Balance 1150 / 1150 Weight last 48 hrs Weight 70.307 kg Weight 70.307 kg Physical Exam 2 Narrative: Accompanied by her . Const: COMMON NORMALS: patient oriented x3 and alert GENERAL APPEARANCE: c ooperative ORIENTATION/CONSCIOUSNESS: Yes awake OTHER: Having chills. HENMT: COMMON NORMALS: oropharynx normal Neck/C-Spine: COMMON NORMALS: no JVD Resp: COMMON NORMALS: normal respiratory effort and clear to auscultation bilaterally AUSCULTATION: clear to auscultation bilaterally Cardio: COMMON NORMALS: no JVD, regular rhythm, S1 normal heart sound present, S2 normal heart sound present and No murmurs present (Cardio) RHYTHM: regular rhythm HEART SOUNDS: S1 normal heart sound present and S2 normal heart sound present GI: COMMON NORMALS: Normal to inspection, nondistended, normoactive bowel sounds present and Soft to palpation PALPATION: Yes Soft to palpation O THER: Some tenderness over the right flank/right side abdomen. Extremity: COMMON NORMALS: no joint enlargement and no pedal edema Neuro: COMMON NORMALS: patient oriented x3 and moves all extremities S ENSORIUM/ORIENTATION: Yes alert Skin: COMMON NORMALS: no rashes or lesions noted NARRATIVE SKIN EXAM: Pale GENERAL SKIN EXAM: no rashes or lesions noted Data 12/06/23 13:10 12/06/23 13:10 Micro: Microbiology 12/06/23 13:30 Blood Culture - Preliminary Blood SPECIMEN COLLECTED 12/06/23 13:30 Blood Culture - Preliminary Blood SPECIMEN COLLECTED A&P Assessment and plan (1) Episode of unresponsiveness: 2 episodes of unresponsiveness at home with presentation, tensing up, subsequent confusion per history obtained from her , although without obvious convulsions, with lactic acidosis of 5, significant trop elevation of 587 on initial study. She is having chills, with SIRS, leukocytosis 16.5, heart rates in the 90s. She has had multiple tick bites. Mild transaminitis AST 44, ALT 42. Mild hyponatremia 132. Without thrombocytopenia, platelets are lower than her prior at 161, previously in 200s. No obvious heart block on EKG, second kidney suggestive of possibly MAT. They report some history of atrial fibrillation. Does have Q waves in V1 and V2. Has not had any chest pain. I saw and evaluated her in ER, discussed with ER physician and reviewed ER note, with concern for possible NSTEMI, possible Lyme carditis or other etiology of new severe trop elevation without prior history of coronary disease, echocardiogram requested, cardiology consulted by ER physician. Discussed with her and her regarding possible etiologies of unresponsive episodes. Initial concern was for possible CVA, although her exam was nonfocal both by ER physician and myself. She has not had word finding difficulty. TIA not excluded, could be NSTEMI related. She did appear to have confusion after the episodes, suggesting some possibility of seizure. 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 Tick panel was requested and she is started empirically on doxycycline. She appears to also be on valproic acid at home. Will check valproic acid level. Monitor for any recurrence of episodes. 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 Would benefit from additional evaluation of the brain with MRI once she is through the more acute illness. Reviewed cardiology note, appreciate assessment, no additional assessments or treatment changes recommended at current time other than assessing her other accompanying conditions. With consideration of other etiology, possibility of infectious cause of her symptoms, possibly going into sepsis, we discussed continuing empiric antibiotic coverage for now, she received Levaquin in ER, with penicillin allergy. Later this evening she is reported to have some mottling on lower extremities, we will continue antibiotic coverage with Snehal Flagyl for now. I discussed also with overnight physician who is reassessing her again. I also discussed CT findings with [facility] to see if there could be any concern for liver abscess or other etiology. Abnormal appearing hypodense lesion in the liver. Per discussion appearance is not suggestive of an abscess at current time. Recommendation is for additional assessment with liver ultrasound. Requested. (2) Word finding difficulty: Not a clear etiology at current time, initial concern for possible CVA, however, nonfocal on exam, does have some history of atrial fibrillation, not on aspirin or anticoagulation. Echocardiogram reviewed. Obtain carotid duplex. Monitor telemetry. Discussed with them starting aspirin. Reassess platelets, monitor for risk of bleeding, de-escalate in case of significant decline. Cannot entirely exclude TIA, would benefit from additional assessment, including MRI brain once she is in a little better shape. Statins held for now with transaminitis. (3) SCOTTY (acute kidney injury): Possibly prerenal SCOTTY, reviewed chemistry including electrolytes, bicarbonate, BUN, creatinine, UA, he is dehydrated, has had poor oral intake recently with lack of appetite, some nausea yesterday as well. Reviewed, not elevated. Recently with reported kidney stone, but on CT scan without signs of obstructive uropathy. Receiving fluid challenge. Reassess kidney function. (4) Lactic acidosis: Not yet clear etiology of lactic acidosis, possibly related to episodes of unresponsiveness, question of possible seizure episode, troponin, maintaining blood pressure, echocardiogram obtained, appears rather unremarkable, grade 1 diastolic dysfunction, normal EF no RWMA. Another possibility related to liver dysfunction with liver mass, hypoperfusion with dehydration. (5) SIRS (systemic inflammatory response syndrome): With leukocytosis 16.5, heart rates in the 90s, chills, although has not had a fever. Possible etiologies as above. Empiric coverage with antibiotics, continue ciprofloxacin, Flagyl. Per discussion with radiology less likely liver abscess. Recent UTI, but urinalysis of infection. No suggestion of infection on chest imaging. Possible tickborne infection with multiple tick bites. Tick panel requested, empirically on doxycycline. Without signs of ascending cholangitis. Follow-up liver parameters. (6) Liver mass: New incidental finding on CT of hypodense masses above. With nodules in the adrenals concern for possible metastatic disease. With SIRS, leukocytosis, some tachycardia, chills, lactic acidosis, troponin elevation, at current time additional assessment for acute process mass not suggestive of liver abscess. Additional assessment with ultrasound. Requesting alpha-fetoprotein. She has a scheduled right axillary lymph node biopsy. Will benefit from liver biopsy tomorrow, with presentation concerning for acute process, with platelets lower than previously 161, for now this will have to wait until platelets reach susie and she is closer to her prior baseline state of health from before Monday. 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 Random cortisol obtained, 20.12. Plan Mild transaminitis: Possibly related to hepatic mass. Check hepatitis panel. Hypothyroidism: Check TSH HLD: With transaminitis hold statin for now. DVT prophylaxis with Lovenox, reassess platelets for any significant decline, renal function, with risk of bleeding with Lovenox. Attestations 2 Medical Necessity Statement*: Admission of over 2 midnights anticipated for assessment management of multiple episodes of unresponsiveness with resultant confusion, possible TIA, possibly another etiology, SIRS, lactic acidosis, troponin elevation, including possible seizure, possible tickborne infection or other occult infection, also with new finding of hypodense mass, suspected metastatic malignancy incidentally noted on CT. and High Time for a total of 95 minutes, includes reviewing past or interval history, examining/interviewing patient, placing orders, counseling patient/family/other support, discussing plan of care with staff, communicating with other healthcare providers, documenting encounter and coordinating care Diagnoses Episode of unresponsiveness R40.4 Word finding difficulty R47.89 SCOTTY (acute kidney injury) N17.9 Lactic acidosis E87.20 SIRS (systemic inflammatory response syndrome) R65.10 Liver mass R16.0 Adrenal mass E27.8
--- NOTE | 2023-12-06 19:45 | ECG_ITS ---
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 Measurements Intervals Exline Rate: 108 P: 134 NJ: 117 QRS: 88 QRSD: 94 T: -22 QT: 362 QTc: 485 Interpretive Statements Sinus rhythm with occasional junctional premature beats POSSIBLE LEFT ATRIAL ENLARGEMENT [-0.1mV P-WAVE IN V1/V2] SEPTAL MYOCARDIAL INFARCTION , OF INDETERMINATE AGE [40+ ms Q WAVE IN V1/V2] Compared to ECG 12/06/2023 15:06:30 Short NJ interval now present Myocardial infarct finding still present Electronically Signed On 12-06-2023 19:46:36 CDT by Ok Huffman M.D. [email or web address]
--- NOTE | 2023-12-06 20:09 | USR_ITS ---
PROCEDURE INFORMATION: Exam: US Abdomen, Limited; Right Upper Quadrant Exam date and time: 12/06/2023 8:31 PM Age: 73 years old Clinical indication: Condition or disease; Liver condition; Other: Density; Additional info: Assess abnormal hypodensity in the liver TECHNIQUE: Imaging protocol: Real time ultrasound of the abdomen with image documentation. Limited exam focused on the right upper quadrant. COMPARISON: CT angio chest w abd pel w con 12/06/2023 2:45 PM FINDINGS: Liver: Normal. No masses. Patent main portal vein with normal direction of flow. Gallbladder: No gallstones. There is a 0.6 cm echogenic focus along the gallbladder wall, which may represent polyp or inspissated sludge. No gallbladder wall thickening. No pericholecystic fluid. Negative sonographic Brizuela's sign. Biliary ducts: Normal. No stones. No dilation. Pancreas: Visualized pancreas is unremarkable. Right kidney: Normal. No mass. No hydronephrosis. Small cyst measuring 1.2 cm noted. US/US liver [id number] IMPRESSION: 1. No hepatic mass identified, as clinically questioned. Further evaluation with contrast enhanced abdomen MRI should be considered in the adequate clinical setting. 2. Subcentimeter gallbladder polyp versus inspissated sludge.
[2023-12-06 20:14] LABS: Troponin 5 6HR 453.8 ng/L (0-10); Troponin 5 6HR Delta -133.2 ng/L (0-12)
[2023-12-06 20:16] LABS: Thyroid Stimulating Hormone 3.37 uIU/mL (0.27-4.20)
--- NOTE | 2023-12-06 20:45 | USCV_ITS ---
Muna Lynn Age: 73 Gender: F : 1950 Exam Date: 12/06/2023 21:21 Ordering Phys: Adrian Stone MD Technologist: LISA Exam Location: [facility] [place] Indication: possible TIA. Never smoked. No DM, although today's glucose is mildly elevated. Negative head CT. Risk Factors: possible TIA. Never smoked. No DM, although today's glucose is mildly elevated. Negative head CT. Previous Vascular Surgery: None Right Brachial BP: 123 / 80 Left Brachial BP: / Right Left Velocity (cm/s) Spectral Plaque Velocity (cm/s) Spectral Plaque Syst/Diast Broadening Syst/Diast Broadening 76.30/ 8.90 Min None Prox CCA 208.80/ 15.50 Min None 90.60/ 12.80 Min None Mid CCA 65.50 / 11.90 Min None 59.50/ 8.90 Min Homo Distal CCA 63.30 / 15.20 Min Homo 51.70/ 8.90 Min Viraj Prox ICA 52.10 / 15.60 Min Viraj 62.10/ 11.50 Min Homo Mid ICA 51.10 / 14.70 Min Homo 57.70/ 16.60 Min Homo Distal ICA 62.30 / 18.10 Min Homo 110.00 Min Homo ECA 98.00 Min Homo 1.00 ICA/CCA 1.00 Antegrade Vertebral Occluded 55.10/ 11.40 cm/s 0.00 / cm/s Tri Subclavian Tri 90.60 110.2 0 CONCLUSIONS Right ICA stenosis <50%. Mild calcified atheromatous plaque right carotid bulb/ICA. Left ICA stenosis <50%. Mild calcified atheromatous plaque left carotid bulb/ICA. Normal antegrade Doppler flow noted in the right vertebral artery which appears dominate. Flow not visualized Left vertebral artery likely occluded or hypoplastic. This could be followed up with CTA if clinically indicated Jaylon Ibarra MD (Electronically Signed) Final Date: 07 December 2023 10:09 S
[2023-12-06 20:52] LABS: Valproic Acid Level 2.8 ug/mL (50-100)
[2023-12-06] MEDS: enoxaparin 40 mg/0.4 mL Syringe SUBCUT (20:59)
[2023-12-06] MEDS: pantoprazole 40 mg SDV IVP (20:59)
[2023-12-06] MEDS: lactated ringers 1,000 ML 100 ML IV (20:59)
[2023-12-06] MEDS: acetaminophen 325 mg Tablet 650 MG PO (20:59)
[2023-12-06] MEDS: metroNIDAZOLE IV 500 MG/100 ML PREMIX 100 MG IV (21:00)
[2023-12-06] MEDS: doxycycline 100 MG in sodium chloride 0.9% (plus) 100 ML IV (21:00)
[2023-12-06 21:02] LABS: Tumor Marker Alpha Fetoprotein 2.8 ng/mL (0-8.3)
[2023-12-06] MEDS: aspirin 325 mg Tablet PO (21:06)
[2023-12-06 21:46] LABS: Glucose Point of Care 167 mg/dL (70-110)
[2023-12-06 22:01] LABS: Hepatitis A Antibody IgM Non-Reactive (Nonreactive); Hepatitis B Core IgM Non-Reactive (Nonreactive); Hepatitis B Surface Antigen Non-Reactive (Nonreactive); Hepatitis C Virus Antibody Non-Reactive (Nonreactive)
[2023-12-07] VITALS (17 sets, daily range): BP systolic 102–134; BP diastolic 61–74; PULSE 72–101; RESP 16–18; TEMP 36.6–37.1; O2SAT 92–97
[2023-12-07 00:54] LABS: Adenovirus Not Detected (NOT DETECT); Chlamydia Pneumoniae Not Detected (NOT DETECT); Coronavirus 229E,HKU1,NL63,OC4 Not Detected (NOT DETECT); Human Metapneumovirus Not Detected (NOT DETECT); Human Rhinovirus/Enterovirus Not Detected (NOT DETECT); Influenza A Not Detected (NOT DETECT); Influenza A H1 Not Detected (NOT DETECT); Influenza A H1-2009 Not Detected (NOT DETECT); Influenza A H3 Not Detected (NOT DETECT); Influenza B Not Detected (NOT DETECT); Mycoplasma Pneumoniae Not Detected (NOT DETECT); Parainfluenza Virus Type 1 Not Detected (NOT DETECT); Parainfluenza Virus Type 2 Not Detected (NOT DETECT); Parainfluenza Virus Type 3 Not Detected (NOT DETECT); Parainfluenza Virus Type 4 Not Detected (NOT DETECT); Respiratory Syncytial Virus A Not Detected (NOT DETECT); Respiratory Syncytial Virus B Not Detected (NOT DETECT); SARS-COV-2 Not Detected (NOT DETECT)
[2023-12-07] MEDS: ciprofloxacin 400 MG/200 ML PREMIX 200 MG IV ×2 (02:04→14:37)
[2023-12-07] MEDS: acetaminophen 325 mg Tablet 650 MG PO ×2 (02:22→19:29)
[2023-12-07] MEDS: metroNIDAZOLE IV 500 MG/100 ML PREMIX 100 MG IV ×3 (03:33→18:49)
[2023-12-07 05:57] LABS: Basophils # 0.1 10^3/uL (0.0-0.1); Basophils % 0.4 %; Eosinophils # 0.2 10^3/uL (0.0-0.8); Hematocrit 43.5 % (36-47); Lymphocytes # 2.3 10^3/uL (0.8-4.8); Lymphocytes % 15.1 %; Mean Corpuscular HGB Conc 31.5 g/dL (30-55); Mean Corpuscular Volume 85.8 fl (85-98); Mean Platelet Volume 11.5 fL (7.4-10.4); Monocytes # 1.4 10^3/uL (0.2-0.9); Monocytes % 9.2 %; Neutrophils # 11.13 10^3/uL (1.8-7.7); Neutrophils % 73.7 %; Nucleated Red Blood Cells % 0 %; Platelet Count 142 10^3/cmm (157-399); Red Blood Count 5.07 10^6/uL (3.85-5.65); Red Cell Distribution Width 14.9 % (12.1-15.1)
[2023-12-07] MEDS: lactated ringers 1,000 ML 100 ML IV ×2 (06:04→18:12)
[2023-12-07 06:15] LABS: Alanine Aminotransferase 204 U/L (0-33); Albumin Level 2.7 g/dL (3.5-5.2); Alkaline Phosphatase 53 U/L (35-105); Anion Gap 14.7 (5-19); Aspartate Amino Transferase 173 U/L (0-32); Blood Urea Nitrogen 22 mg/dL (8-23); Calcium 8.5 mg/dL (8.5-10.5); Carbon Dioxide 26 mmol/L (22-29); Chloride 100 mmol/L (98-107); Globulin 3.3 g/dL (1.3-4.6); Glucose 117 mg/dL (65-115); Magnesium 1.8 mg/dL (1.7-2.3); Osmolality Calculated 288 mOsm/kg (285-295); Potassium 3.7 mmol/L (3.5-5.1); Sodium 137 mmol/L (136-145); Total Bilirubin 0.7 mg/dL (0.15-1.2)
[2023-12-07 06:43] LABS: Glucose Point of Care 99 mg/dL (70-110)
[2023-12-07] MEDS: doxycycline 100 MG in sodium chloride 0.9% (plus) 100 ML IV ×2 (07:49→20:26)
[2023-12-07] MEDS: divalproex DR 250 mg Tablet PO (08:35)
[2023-12-07] MEDS: levothyroxine 75 mcg Tablet PO (08:36)
[2023-12-07] MEDS: aspirin 325 mg Tablet PO (08:36)
[2023-12-07] MEDS: PARoxetine 20 mg Tablet 30 MG PO (08:36)
--- NOTE | 2023-12-07 12:30 | P.PN_ITS ---
Subjective 2 Subjective: Patient doing better and is alert and oriented. No chest pain. Vitals/I&O/Wt Last Vital Signs Temp 98.1 F 12/07/23 12:30 Pulse 78 12/07/23 12:30 Resp 16 12/07/23 12:30 BP 134/74 12/07/23 12:30 Pulse Ox 96 12/07/23 12:30 O2 Del Method Room Air 12/07/23 12:30 12/06/23 12/07/23 12/07/23 22:59 06:59 14:59 Intake Total 1700 / 1700 1408.333 / 3108.333 220 / 220 Output Total 700 / 700 Balance 1700 / 1700 708.333 / 2408.333 220 / 220 Weight last 48 hrs Weight 163 lb 12.8 oz Weight 163 lb 12.8 oz Weight 155 lb Weight 155 lb Physical Exam 2 Narrative: GENERAL: Patient is alert, awake and oriented x3. [] NECK: No jugular vein distension. [] HEENT: No cyanosis. No icterus. No pallor. [] HEART: Regular S1 and S2. No murmur, rub or gallop. [] LUNGS: Clear to auscultate bilaterally. [] CENTRAL NERVOUS SYSTEM: Grossly nonfocal. [] EXTREMITIES: Lower extremities with no edema bilaterally. Data 12/08/23 04:41 12/08/23 04:41 Micro: Microbiology 12/06/23 13:30 Blood Culture - Preliminary Blood 12/06/23 13:30 Blood Culture - Preliminary Blood SPECIMEN COLLECTED A&P Assessment and plan (1) Dyslipidemia: (2) Liver mass: (3) Adrenal mass: (4) Renal insufficiency: (5) Troponin level elevated: Plan Patient's troponin elevation likely secondary to demand ischemia. EF is normal. She denies chest pain. Will need workup for adrenal mass/liver mass. For better evaluation of troponin elevation, can obtain Lexiscan. Thank you for involving us with care of this patient. Will continue to follow. Please call with questions. Attestations 2 Medical Necessity Statement*: Care expected to cross 2 midnights. Coding Level of Care Code Acute Code for Chg Fwd Diagnoses Dyslipidemia E78.5 Liver mass R16.0 Adrenal mass E27.8 Renal insufficiency N28.9 Troponin level elevated R79.89
[2023-12-07] MEDS: pantoprazole 40 mg SDV IVP (18:49)
[2023-12-07] MEDS: enoxaparin 40 mg/0.4 mL Syringe SUBCUT (18:49)
--- NOTE | 2023-12-07 20:38 | P.PN_ITS ---
Subjective 2 Subjective: Today she is feeling better. Chills have resolved. Mental status is improved. No further word finding difficulty, no additional episodes of unresponsiveness. No other new developments. Vitals/I&O/Wt Last Vital Signs Temp 98.3 F 12/07/23 19:39 Pulse 77 12/07/23 19:39 Resp 17 12/07/23 19:39 BP 117/68 12/07/23 19:39 Pulse Ox 92 12/07/23 19:39 O2 Del Method Room Air 12/07/23 19:39 12/07/23 12/07/23 12/07/23 06:59 14:59 22:59 Intake Total 1408.333 / 3108.333 560 / 560 1300 / 1860 Output Total 700 / 700 Balance 708.333 / 2408.333 560 / 560 1300 / 1860 Weight last 48 hrs Weight 74.298 kg Weight 74.298 kg Weight 70.307 kg Weight 70.307 kg Physical Exam 2 Narrative: Accompanied by her . Const: COMMON NORMALS: patient oriented x3 and alert GENERAL APPEARANCE: c ooperative ORIENTATION/CONSCIOUSNESS: Yes awake HENMT: COMMON NORMALS: oropharynx normal Neck/C-Spine: COMMON NORMALS: no JVD Resp: COMMON NORMALS: normal respiratory effort and clear to auscultation bilaterally AUSCULTATION: clear to auscultation bilaterally Cardio: COMMON NORMALS: no JVD, regular rhythm, S1 normal heart sound present, S2 normal heart sound present and No murmurs present (Cardio) RHYTHM: regular rhythm HEART SOUNDS: S1 normal heart sound present and S2 normal heart sound present GI: COMMON NORMALS: Normal to inspection, nondistended, normoactive bowel sounds present and Soft to palpation PALPATION: Yes Soft to palpation O THER: Some tenderness over the right flank/right side abdomen. Extremity: COMMON NORMALS: no joint enlargement and no pedal edema Neuro: COMMON NORMALS: patient oriented x3 and moves all extremities S ENSORIUM/ORIENTATION: Yes alert Skin: COMMON NORMALS: no rashes or lesions noted NARRATIVE SKIN EXAM: Pale GENERAL SKIN EXAM: no rashes or lesions noted Data 12/07/23 05:29 12/07/23 05:29 Micro: Microbiology 12/06/23 13:30 Blood Culture - Preliminary Blood Bacillus subtilis Staphylococcus species 12/06/23 13:30 Blood Culture - Preliminary Blood NEGATIVE TO DATE A&P Assessment and plan (1) Episode of unresponsiveness: So far without recurrence. Reviewed vitals, CBC, CMP, magnesium, respiratory viral panel. Respiratory viral panel negative. Subjectively she is feeling better. Continuing treatment with doxycycline, with pending tick panel. Continue seizure precautions, and we are planning for MRI brain. Carotid Doppler has been ordered, obtained this morning reviewed. Less than 50% bilateral stenosis. Mild calcified atheromatous plaque. Cardiology is reassessing as well. Planning for stress test tomorrow. But now with finding of possible Gram-positive bacteremia, appearance of Staphylococcus in 2/2 bottles on one of the sets of blood culture, as per additional discussion with cardiology for now stress test is deferred. They will review echocardiogram images again, and we will follow-up on her condition, blood culture, reassess and consider additional evaluation, consideration of CHET. Continue to monitor on telemetry. Continue IV antibiotic with possible gram-positive bacteremia, possible sepsis on presentation with leukocytosis, tachycardia, lactic acidosis. Noted on blood culture this afternoon. Does not have an obvious source, including on CT chest abdomen pelvis contrast-enhanced study. Does not have any known foreign bodies. 2 episodes of unresponsiveness at home with presentation, tensing up, subsequent confusion per history obtained from her , although without obvious convulsions, with lactic acidosis of 5, significant trop elevation of 587 on initial study. She is having chills, with SIRS, leukocytosis 16.5, heart rates in the 90s. She has had multiple tick bites. Mild transaminitis AST 44, ALT 42. Mild hyponatremia 132. Without thrombocytopenia, platelets are lower than her prior at 161, previously in 200s. No obvious heart block on EKG, second kidney suggestive of possibly MAT. They report some history of atrial fibrillation. Does have Q waves in V1 and V2. Has not had any chest pain. I saw and evaluated her in ER, discussed with ER physician and reviewed ER note, with concern for possible NSTEMI, possible Lyme carditis or other etiology of new severe trop elevation without prior history of coronary disease, echocardiogram requested, cardiology consulted by ER physician. Discussed with her and her regarding possible etiologies of unresponsive episodes. Initial concern was for possible CVA, although her exam was nonfocal both by ER physician and myself. She has not had word finding difficulty. TIA not excluded, could be NSTEMI related. She did appear to have confusion after the episodes, suggesting some possibility of seizure. 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 Tick panel was requested and she is started empirically on doxycycline. She appears to also be on valproic acid at home. Will check valproic acid level. Monitor for any recurrence of episodes. With finding of new liver mass, adrenal masses with possible metastatic malignancy, discussed consideration of other etiologies including possibility of metastatic disease to SALES MARKETING COORDINATOR. Would benefit from additional evaluation of the brain with MRI once she is through the more acute illness. Reviewed cardiology note, appreciate assessment, no additional assessments or treatment changes recommended at current time other than assessing her other accompanying conditions. With consideration of other etiology, possibility of infectious cause of her symptoms, possibly going into sepsis, we discussed continuing empiric antibiotic coverage for now, she received Levaquin in ER, with penicillin allergy. Later this evening she is reported to have some mottling on lower extremities, we will continue antibiotic coverage with Cipro, Flagyl for now. I discussed also with overnight physician who is reassessing her again. I also discussed CT findings with [facility] to see if there could be any concern for liver abscess or other etiology. Abnormal appearing hypodense lesion in the liver. Per discussion appearance is not suggestive of an abscess at current time. Recommendation is for additional assessment with liver ultrasound. Requested. (2) Word finding difficulty: Show for results. We discussed and are requesting additional assessment with MRI brain, contrast-enhanced given additional findings of suspicion for lymph nodes, adrenal nodules. Carotid duplex reviewed. Discussed cannot exclude TIA, for now continues on aspirin, but discussed risk of bleeding as well with thrombocytopenia, follow-up for susie. Not a clear etiology at current time, initial concern for possible CVA, however, nonfocal on exam, does have some history of atrial fibrillation, not on aspirin or anticoagulation. Echocardiogram reviewed. Obtain carotid duplex. Monitor telemetry. Discussed with them starting aspirin. Reassess platelets, monitor for risk of bleeding, de-escalate in case of significant decline. Cannot entirely exclude TIA, would benefit from additional assessment, including MRI brain once she is in a little better shape. Statins held for now with transaminitis. (3) SCOTTY (acute kidney injury): With improvement, reviewed BUN, creatinine, electrolytes, bicarb, anion gap. Creatinine is down to 1. Reduce LR rate Possibly prerenal SCOTTY, reviewed chemistry including electrolytes, bicarbonate, BUN, creatinine, UA, he is dehydrated, has had poor oral intake recently with lack of appetite, some nausea yesterday as well. Reviewed, not elevated. Recently with reported kidney stone, but on CT scan without signs of obstructive uropathy. Receiving fluid challenge. Reassess kidney function. (4) Lactic acidosis: With improvement. Discussed possible early sepsis, discussed, not continuing empiric antibiotic with ciprofloxacin and Flagyl, they are agreeable. Follow-up blood culture. Does appear to have positive blood culture. Not yet clear etiology of lactic acidosis, possibly related to episodes of unresponsiveness, question of possible seizure episode, troponin, maintaining blood pressure, echocardiogram obtained, appears rather unremarkable, grade 1 diastolic dysfunction, normal EF no RWMA. Another possibility related to liver dysfunction with liver mass, hypoperfusion with dehydration. (5) SIRS (systemic inflammatory response syndrome): With improvement. Discussed possible early sepsis, discussed, not continuing empiric antibiotic with ciprofloxacin and Flagyl, they are agreeable. Follow-up blood culture. Does appear to have positive blood culture. With leukocytosis 16.5, heart rates in the 90s, chills, although has not had a fever. Possible etiologies as above. Empiric coverage with antibiotics, continue ciprofloxacin, Flagyl. Per discussion with radiology less likely liver abscess. Recent UTI, but urinalysis of infection. No suggestion of infection on chest imaging. Possible tickborne infection with multiple tick bites. Tick panel requested, empirically on doxycycline. Without signs of ascending cholangitis. Follow-up liver parameters. (6) Liver mass: No liver mass on ultrasound. New incidental finding on CT of hypodense masses above. With nodules in the adrenals concern for possible metastatic disease. With SIRS, leukocytosis, some tachycardia, chills, lactic acidosis, troponin elevation, at current time additional assessment for acute process mass not suggestive of liver abscess. Additional assessment with ultrasound. Requesting alpha-fetoprotein. She has a scheduled right axillary lymph node biopsy. Will benefit from liver biopsy tomorrow, with presentation concerning for acute process, with platelets lower than previously 161, for now this will have to wait until platelets reach susie and she is closer to her prior baseline state of health from before Monday. 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 Random cortisol obtained, 20.12. Plan Mild transaminitis: Noted worsening transaminitis. Possibly related to tickborne infection. Continue doxycycline. On review of ultrasound no mass noted today. We discussed additional imaging with MRI of the liver. Reviewed hepatitis panel, negative. Hypothyroidism: Reviewed TSH, WNL HLD: With transaminitis hold statin for now. DVT prophylaxis with Lovenox, reassess platelets for any significant decline, renal function, with risk of bleeding with Lovenox. Attestations 2 Medical Necessity Statement*: Continue admission for assessment and management of suspected sepsis with gram- positive/staphylococcal bacteremia, additional assessment for cardiac involvement, possible sources, assessment of unresponsive episodes, including SALES MARKETING COORDINATOR imaging, further imaging of the liver after a concerning finding of possible mass on CT, treatment for possible tickborne infection. Diagnoses Episode of unresponsiveness R40.4 Word finding difficulty R47.89 SCOTTY (acute kidney injury) N17.9 Lactic acidosis E87.20 SIRS (systemic inflammatory response syndrome) R65.10 Liver mass R16.0 Adrenal mass E27.8
[2023-12-07] MEDS: linezolid premix 600 MG/300 ML PREMIX 300 MG IV (21:33)
--- NOTE | 2023-12-07 21:59 | PC.NURSE ---
Confirmed with Bertha Fernando, stress test is cancelled for tomorrow due to positive blood cultures.
--- NOTE | 2023-12-07 23:29 | PC.NURSE ---
Messaged Dr. Stone regarding call from telepharmacy. They called to make provider aware that patient is on paxil and now has new order for Zyvox and usually paxil is put on hold while on zyvox due to increased risk for serotonin syndrome. Made aware and he said it was ok to put the medication on hold. Nurse called back telepharmacy and they stated they would put the medication on hold.
[2023-12-08] VITALS (13 sets, daily range): BP systolic 107–145; BP diastolic 56–78; PULSE 66–81; RESP 15–17; TEMP 36.7–37.3; O2SAT 91–99
[2023-12-08] MEDS: ciprofloxacin 400 MG/200 ML PREMIX 200 MG IV ×2 (01:31→15:49)
[2023-12-08] MEDS: metroNIDAZOLE IV 500 MG/100 ML PREMIX 100 MG IV ×3 (02:38→21:05)
[2023-12-08] MEDS: acetaminophen 325 mg Tablet 650 MG PO ×3 (03:03→20:55)
[2023-12-08 05:49] LABS: Basophils # 0.1 10^3/uL (0.0-0.1); Basophils % 0.5 %; Eosinophils # 0.4 10^3/uL (0.0-0.8); Eosinophils % 3.4 %; Hematocrit 37.3 % (36-47); Lymphocytes # 1.6 10^3/uL (0.8-4.8); Lymphocytes % 14.7 %; Mean Corpuscular HGB Conc 31.4 g/dL (30-55); Mean Corpuscular Hemoglobin 26.9 pg (27-33); Mean Corpuscular Volume 85.7 fl (85-98); Mean Platelet Volume 11.4 fL (7.4-10.4); Monocytes # 1.3 10^3/uL (0.2-0.9); Monocytes % 11.7 %; Neutrophils % 69.2 %; Nucleated Red Blood Cells % 0 %; Platelet Count 148 10^3/cmm (157-399); Red Blood Count 4.35 10^6/uL (3.85-5.65); Red Cell Distribution Width 14.7 % (12.1-15.1); White Blood Count 10.99 10^3/uL (3.29-11.43)
--- NOTE | 2023-12-08 06:00 | MR_ITS ---
WS: [id number] MRI HEAD WITH CONTRAST TECHNIQUE: Sagittal T1, T2 axial, T2 axial FLAIR, axial susceptibility weighted imaging, axial diffus ion weighted images, and coronal T2 images were obtained. Pre and post-T1 axial and post T1 coronal i mages. ADC and FSPGR images. CLINICAL INFORMATION: poss seizure vs TIA vs Syncope COMPARISON: CT 12/06/2023 FINDINGS: No evidence of restricted diffusion to suggest acute ischemia. Ventricular system and basal cisterns are patent. Mild small vessel changes. Mild parenchymal volume loss. Paranasal sinuses and mastoid ai r cells well aerated. Normal posterior nasopharynx. Normal optic chiasm and pituitary infundibulum. N o evidence of enhancing intracranial metastatic disease. MR/MR head wo/w con [id number] IMPRESSION: 1. No evidence of restricted diffusion to suggest acute ischemia. 2. No hemosiderin on the susceptibly weighted images. 3. Mild small vessel changes with mild parenchymal volume loss. 4. No evidence of enhancing intracranial metastatic disease.
[2023-12-08 06:14] LABS: Alanine Aminotransferase 410 U/L (0-33); Albumin Level 2.7 g/dL (3.5-5.2); Alkaline Phosphatase 52 U/L (35-105); Anion Gap 13.4 (5-19); Aspartate Amino Transferase 364 U/L (0-32); Blood Urea Nitrogen 15 mg/dL (8-23); Calcium 8.4 mg/dL (8.5-10.5); Carbon Dioxide 27 mmol/L (22-29); Chloride 104 mmol/L (98-107); Creatinine Clr Calc Pharmacy 51.8911; Glucose 99 mg/dL (65-115); Osmolality Calculated 293 mOsm/kg (285-295); Potassium 3.4 mmol/L (3.5-5.1); Sodium 141 mmol/L (136-145); Total Bilirubin 0.4 mg/dL (0.15-1.2); Total Protein 5.7 g/dL (6.6-8.7)
[2023-12-08] MEDS: doxycycline 100 MG in sodium chloride 0.9% (plus) 100 ML IV (06:54)
--- NOTE | 2023-12-08 08:00 | ECG_ITS ---
[facility] Test Date: 2023-12-13 Pat Name: Muna Lynn Department: Room: 269 Gender: Female [employer] Technician: : [id number] Requested By: Adrian Stone Order Number: [id number] Jose Carlos MD: Arnel Bennett M.D. Interpretive Statements NAME OF STUDY: LEXISCAN SESTAMIBI STRESS TEST INDICATION: [NONSTEMI] [email or web address]
[2023-12-08] MEDS: aspirin 325 mg Tablet PO (08:43)
[2023-12-08] MEDS: divalproex DR 250 mg Tablet PO (08:43)
[2023-12-08] MEDS: linezolid premix 600 MG/300 ML PREMIX 200 MG IV ×2 (08:43→22:30)
[2023-12-08] MEDS: levothyroxine 75 mcg Tablet PO (08:43)
--- NOTE | 2023-12-08 09:29 | P.PN_ITS ---
Subjective 2 Subjective: Patient feeling better. No chest pain. Vitals/I&O/Wt Last Vital Signs Temp 98.5 F 12/08/23 07:46 Pulse 68 12/08/23 07:46 Resp 17 12/08/23 07:46 BP 145/78 12/08/23 07:46 Pulse Ox 99 12/08/23 07:46 O2 Del Method Room Air 12/08/23 07:46 12/07/23 12/08/23 12/08/23 22:59 06:59 14:59 Intake Total 2181.667 / 2741.667 837.5 / 3579.167 118 / 118 Balance 2181.667 / 2741.667 837.5 / 3579.167 118 / 118 Weight last 48 hrs Weight 169 lb Weight 163 lb 12.8 oz Weight 163 lb 12.8 oz Weight 155 lb Weight 155 lb Physical Exam 2 Narrative: GENERAL: Patient is alert, awake and oriented x3. [] NECK: No jugular vein distension. [] HEENT: No cyanosis. No icterus. No pallor. [] HEART: Regular S1 and S2. No murmur, rub or gallop. [] LUNGS: Clear to auscultate bilaterally. [] CENTRAL NERVOUS SYSTEM: Grossly nonfocal. [] EXTREMITIES: Lower extremities with no edema bilaterally. Data 12/09/23 04:58 12/09/23 04:58 Micro: Microbiology 12/06/23 13:30 Blood Culture - Preliminary Blood Bacillus subtilis Staphylococcus species 12/06/23 13:30 Blood Culture - Preliminary Blood NEGATIVE TO DATE A&P Assessment and plan (1) Dyslipidemia: (2) Liver mass: (3) Adrenal mass: (4) Renal insufficiency: (5) Troponin level elevated: Plan Patient's troponin elevation likely secondary to demand ischemia. EF is normal. She denies chest pain. Will need workup for adrenal mass/liver mass. Initial plan was to perform Lexiscan today however patient's blood cultures returned positive for bacillus subtilis. Not typical organism for endocarditis. Repeat blood cultures to confirm but does not contaminant. Overall responding to antibiotics with decreasing WBC count and clinical improvement. If repeat cultures are also positive or no other source bacteremia from, can perform transesophageal echocardiogram. Transthoracic echo does not show vegetations. Plan for MRI of brain today. Thank you for involving us with care of this patient. Will continue to follow. Please call with questions. Attestations 2 Medical Necessity Statement*: Care expected to cross 2 midnights. Coding Level of Care Code Acute Code for Chg Fwd Diagnoses Dyslipidemia E78.5 Liver mass R16.0 Adrenal mass E27.8 Renal insufficiency N28.9 Troponin level elevated R79.89
--- NOTE | 2023-12-08 09:49 | PC.CHAP ---
Pastoral Care Encounter/Spiritual Assessment Type of Contact [] Declined electrical assemblies supervisor visit [] Patient/Family/Request visit [] Outpatient visit [] Follow-up visit [] Physician referral [] Code/Alert [] Routine visit [] Staff referral [] Actively dying [] Patient sleeping [] Family support [] [] Out of room [] Palliative care [] [x] Receiving care in room [] Pre-surgical visit [] Trauma [] Long length of stay [] ICU visit [] Other: Relational/Emotional Strength [] Patient feels connected with others/family/visitors/staff [] Distress [] Loneliness/isolation [] Abandonment Spirituality of Patient [] Person of Gemini [] Attends Congregational of their Gemini [] Believes in Prayer [] Reads Bible or Oriental Orthodox materials [] There are Spiritual issues to be addressed Hosiery Bagger Interventions [] Prayer [] Active listening [] Non-anxious presence [] Spiritual/emotional support [] Crisis/trauma care [] Spiritual counseling [] Bereavement support [] Provided bereavement packet [] Provided Bible/devotional materials [] Provided toy/stuffed animal, coloring book to patient or family member [] Provided Communion [] Anointing/Chaplin [] Salvation [] Completed spiritual assessment [] Other: Impact on Illness or Injury [] Angry [] Fearful [] Anxious [] Often cries [] Exhaustion [] Unable to work [] Unable to attend zoroastrian [] Unable to walk/stand [] Unable to read [] Unable to drive [] Unable to eat/drink [] Unable to sleep [] Unable to be with family [] Patient intubated [] Other: Summary Time spent with patient
[2023-12-08] MEDS: gadobenate dimeglumine 20 mL vial IV (10:41)
--- NOTE | 2023-12-08 10:50 | PC.SOCIAL ---
IMM Updated Updated pt on IMM. No questions voiced. Provided pt a copy. Initialed, dated, & timed a copy & placed in chart.
[2023-12-08 15:33] LABS: Lyme AB Screen <0.90 index
[2023-12-08] MEDS: doxycycline 100 mg Tablet PO (16:55)
--- NOTE | 2023-12-08 20:03 | P.PN_ITS ---
Subjective 2 Subjective: She is feeling better. Denies any new symptoms. Discussed with her regarding findings of possible bacteremia, positive blood culture, bacillus sepsis, possibly also small growth of Staphylococcus. She denies any open wounds, denies any dental problems. Has been having some tenderness and across lower abdomen. Vitals/I&O/Wt Last Vital Signs Temp 98.1 F 12/08/23 15:34 Pulse 68 12/08/23 15:34 Resp 15 12/08/23 15:34 BP 125/72 12/08/23 15:34 Pulse Ox 95 12/08/23 15:34 O2 Del Method Room Air 12/08/23 15:34 12/08/23 12/08/23 12/08/23 06:59 14:59 22:59 Intake Total 837.5 / 3579.167 758 / 758 318 / 1076 Balance 837.5 / 3579.167 758 / 758 318 / 1076 Weight last 48 hrs Weight 76.657 kg Weight 74.298 kg Weight 74.298 kg Physical Exam 2 Const: COMMON NORMALS: patient oriented x3 and alert GENERAL APPEARANCE: c ooperative ORIENTATION/CONSCIOUSNESS: Yes awake OTHER: Having chills. HENMT: COMMON NORMALS: oropharynx normal Neck/C-Spine: COMMON NORMALS: no JVD Resp: COMMON NORMALS: normal respiratory effort and clear to auscultation bilaterally AUSCULTATION: clear to auscultation bilaterally Cardio: COMMON NORMALS: no JVD, regular rhythm, S1 normal heart sound present, S2 normal heart sound present and No murmurs present (Cardio) RHYTHM: regular rhythm HEART SOUNDS: S1 normal heart sound present and S2 normal heart sound present GI: COMMON NORMALS: Normal to inspection, nondistended, normoactive bowel sounds present and Soft to palpation PALPATION: Yes Soft to palpation O THER: Some tenderness Across lower abdomen. Extremity: COMMON NORMALS: no joint enlargement and no pedal edema Neuro: COMMON NORMALS: patient oriented x3 and moves all extremities S ENSORIUM/ORIENTATION: Yes alert Skin: COMMON NORMALS: no rashes or lesions noted NARRATIVE SKIN EXAM: Pale GENERAL SKIN EXAM: no rashes or lesions noted Data 12/08/23 04:41 12/08/23 04:41 Micro: Microbiology 12/08/23 11:22 Blood Culture - Preliminary Blood SPECIMEN COLLECTED 12/08/23 11:20 Blood Culture - Preliminary Blood SPECIMEN COLLECTED 12/06/23 13:30 Blood Culture - Preliminary Blood Bacillus subtilis Staphylococcus species A&P Assessment and plan (1) Positive blood culture: Reviewed vitals, CBC, CMP, reviewed blood culture. Reviewed CT chest abdomen pelvis. Liver ultrasound. Discussed with her, discussed with reimbursement rep. Discussed with microbiology lab, bacillus subtilis, initially consideration whether could be contaminant, also Staphylococcus, however, per discussion with micro lab, scattered bacillus subtilis growth over the entire plate. Reported subtilis due to lack of other option, but per discussion w micro lab is actually 'subtilis group'. Staff is not growing it, possibly slow-growing. Per discussion with patient, she does not have an obvious source. This bacteria is prevalent in soil, but is also commensal bacteria in the GI tract. She does not have any open wounds. Denies any dental problems. Pending additional assessment of the liver with questionable hypodensity on CT, however, there was no finding on the ultrasound. Follow-up liver MRI. Is noted to have transaminitis. We are repeating blood culture as well. Continue empiric antibiotic coverage at current time. With penicillin allergy, continue ciprofloxacin. He is also on doxycycline. Discussed also with cardiology who additionally reviewed TTE, without suggestion of perivalvular abscess. Depending on culture results, her condition and repeat cultures, there may be consideration of additional imaging, consideration of CHET. For now continue on ciprofloxacin, Flagyl with consideration of possible GI source of bacteremia, for now with linezolid on board as well with staphylococcal growth on blood culture, with coverage for possibility of MRSA. Also on doxycycline. Discussed with her risk of C. difficile. Consultation with infectious disease on Monday would be useful, otherwise please follow-up. Discussed with her consideration of possibly to continue IV antibiotics for perhaps at least 2 weeks in case of uncomplicated bacteremia. Complicated bacteremia may require a longer course 6 weeks or more and possibly additional assessment/treatment. She has also had some lower abdominal tenderness. Discussed with her also review of urine culture, noted to have likely cystitis/UTI with gram-negative sarah. Follow-up culture. (2) Episode of unresponsiveness: Obtained head MRI today, reviewed, without suggestion of any abscess, ischemia or other acute abnormality. Mild small vessel changes with mild parenchymal volume loss. Cardiology is reassessing as well. Reviewed cardiology note. Discussed with cardiology, Stress test deferred for now. Continue to monitor on telemetry. Continue IV antibiotic with possible gram-positive bacteremia, possible sepsis on presentation with leukocytosis, tachycardia, lactic acidosis. Noted on blood culture this afternoon. Does not have an obvious source, including on CT chest abdomen pelvis contrast-enhanced study. Does not have any known foreign bodies. 2 episodes of unresponsiveness at home with presentation, tensing up, subsequent confusion per history obtained from her , although without obvious convulsions, with lactic acidosis of 5, significant trop elevation of 587 on initial study. She is having chills, with SIRS, leukocytosis 16.5, heart rates in the 90s. She has had multiple tick bites. Mild transaminitis AST 44, ALT 42. Mild hyponatremia 132. Without thrombocytopenia, platelets are lower than her prior at 161, previously in 200s. No obvious heart block on EKG, second kidney suggestive of possibly MAT. They report some history of atrial fibrillation. Does have Q waves in V1 and V2. Has not had any chest pain. I saw and evaluated her in ER, discussed with ER physician and reviewed ER note, with concern for possible NSTEMI, possible Lyme carditis or other etiology of new severe trop elevation without prior history of coronary disease, echocardiogram requested, cardiology consulted by ER physician. Discussed with her and her regarding possible etiologies of unresponsive episodes. Initial concern was for possible CVA, although her exam was nonfocal both by ER physician and myself. She has not had word finding difficulty. TIA not excluded, could be NSTEMI related. She did appear to have confusion after the episodes, suggesting some possibility of seizure. 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 Tick panel was requested and she is started empirically on doxycycline. She appears to also be on valproic acid at home. Will check valproic acid level. Monitor for any recurrence of episodes. With finding of new liver mass, adrenal masses with possible metastatic malignancy, discussed consideration of other etiologies including possibility of metastatic disease to [employer]. Would benefit from additional evaluation of the brain with MRI once she is through the more acute illness. Reviewed cardiology note, appreciate assessment, no additional assessments or treatment changes recommended at current time other than assessing her other accompanying conditions. With consideration of other etiology, possibility of infectious cause of her symptoms, possibly going into sepsis, we discussed continuing empiric antibiotic coverage for now, she received Levaquin in ER, with penicillin allergy. Later this evening she is reported to have some mottling on lower extremities, we will continue antibiotic coverage with Cipro, Flagyl for now. I discussed also with overnight physician who is reassessing her again. I also discussed CT findings with [facility] to see if there could be any concern for liver abscess or other etiology. Abnormal appearing hypodense lesion in the liver. Per discussion appearance is not suggestive of an abscess at current time. Recommendation is for additional assessment with liver ultrasound. Requested. (3) Word finding difficulty: Resolved. No sign of ischemia on MRI. Suspect related to sepsis on presentation. We discussed and are requesting additional assessment with MRI brain, contrast- enhanced given additional findings of suspicion for lymph nodes, adrenal nodules. Carotid duplex reviewed. Discussed cannot exclude TIA, for now continues on aspirin, but discussed risk of bleeding as well with thrombocytopenia, follow-up for susie. Not a clear etiology at current time, initial concern for possible CVA, however, nonfocal on exam, does have some history of atrial fibrillation, not on aspirin or anticoagulation. Echocardiogram reviewed. Obtain carotid duplex. Monitor telemetry. Discussed with them starting aspirin. Reassess platelets, monitor for risk of bleeding, de-escalate in case of significant decline. Cannot entirely exclude TIA, would benefit from additional assessment, including MRI brain once she is in a little better shape. Statins held for now with transaminitis. (4) SCOTTY (acute kidney injury): Reviewed creatinine, BUN, bicarb, anion gap, potassium. Improving kidney function. BUN 15, creatinine 1. Mild hypokalemia 3.4, replaced. With improvement, reviewed BUN, creatinine, electrolytes, bicarb, anion gap. Creatinine is down to 1. Reduce LR rate Possibly prerenal SCOTTY, reviewed chemistry including electrolytes, bicarbonate, BUN, creatinine, UA, he is dehydrated, has had poor oral intake recently with lack of appetite, some nausea yesterday as well. Reviewed, not elevated. Recently with reported kidney stone, but on CT scan without signs of obstructive uropathy. Receiving fluid challenge. Reassess kidney function. (5) Lactic acidosis: With improvement. Discussed possible early sepsis, discussed, not continuing empiric antibiotic with ciprofloxacin and Flagyl, they are agreeable. Follow-up blood culture. Does appear to have positive blood culture. Not yet clear etiology of lactic acidosis, possibly related to episodes of unresponsiveness, question of possible seizure episode, troponin, maintaining blood pressure, echocardiogram obtained, appears rather unremarkable, grade 1 diastolic dysfunction, normal EF no RWMA. Another possibility related to liver dysfunction with liver mass, hypoperfusion with dehydration. (6) SIRS (systemic inflammatory response syndrome): With improvement. Discussed possible early sepsis, discussed, not continuing empiric antibiotic with ciprofloxacin and Flagyl, they are agreeable. Follow-up blood culture. Does appear to have positive blood culture. With leukocytosis 16.5, heart rates in the 90s, chills, although has not had a fever. Possible etiologies as above. Empiric coverage with antibiotics, continue ciprofloxacin, Flagyl. Per discussion with radiology less likely liver abscess. Recent UTI, but urinalysis of infection. No suggestion of infection on chest imaging. Possible tickborne infection with multiple tick bites. Tick panel requested, empirically on doxycycline. Without signs of ascending cholangitis. Follow-up liver parameters. (7) Liver mass: Assess liver MRI. No liver mass on ultrasound. New incidental finding on CT of hypodense masses above. With nodules in the adrenals concern for possible metastatic disease. With SIRS, leukocytosis, some tachycardia, chills, lactic acidosis, troponin elevation, at current time additional assessment for acute process mass not suggestive of liver abscess. Additional assessment with ultrasound. Requesting alpha-fetoprotein. She has a scheduled right axillary lymph node biopsy. Will benefit from liver biopsy tomorrow, with presentation concerning for acute process, with platelets lower than previously 161, for now this will have to wait until platelets reach susie and she is closer to her prior baseline state of health from before Monday. (8) Adrenal mass: Adrenal nodules will need additional imaging with triple phase CT. Follow-up SCOTTY for resolution. Bilateral adrenal nodules, suspected possible metastatic disease. Random cortisol obtained, 20.12. Plan Mild transaminitis: With some worsening transaminitis. Not entirely clear etiology. Viral hepatitis studies negative. Possibly tickborne illness. Add Francisella serology with also noted enlargement of a lymph node. Additional assessment of liver with MRI. Noted worsening transaminitis. Possibly related to tickborne infection. Continue doxycycline. On review of ultrasound no mass noted today. We discussed additional imaging with MRI of the liver. Reviewed hepatitis panel, negative. Hypothyroidism: Reviewed TSH, WNL HLD: With transaminitis hold statin for now. DVT prophylaxis with Lovenox, reassess platelets for any significant decline, renal function, with risk of bleeding with Lovenox. Attestations 2 Medical Necessity Statement*: Continue admission for assessment and management of suspected sepsis with possible gram-positive bacteremia, additional assessment for possible sources, assessment of unresponsive episodes, further imaging of the liver after a concerning finding of possible mass on CT, treatment for possible tickborne infection. , High MDM includes amount and/or complexity of data reviewed/ordered [ previous or external records, resulted lab(s)/test(s), ordered lab(s)/test(s) and other healthcare professional discussion] and described risk of complication, morbidity or mortality of management as documented and High Time for a total of 70 minutes, includes reviewing past or interval history, examining/interviewing patient, placing orders, counseling patient/family/other support, discussing plan of care with staff, communicating with other healthcare providers, documenting encounter and coordinating care Diagnoses Positive blood culture R78.81 Episode of unresponsiveness R40.4 Word finding difficulty R47.89 SCOTTY (acute kidney injury) N17.9 Lactic acidosis E87.20 SIRS (systemic inflammatory response syndrome) R65.10 Liver mass R16.0 Adrenal mass E27.8
[2023-12-08] MEDS: enoxaparin 40 mg/0.4 mL Syringe SUBCUT (20:54)
[2023-12-08] MEDS: potassium chloride ER 20 mEq Tablet PO (20:55)
[2023-12-08] MEDS: pantoprazole 40 mg SDV IVP (20:58)
[2023-12-09] VITALS (13 sets, daily range): BP systolic 103–155; BP diastolic 54–76; PULSE 67–73; RESP 16–17; TEMP 36.4–37.3; O2SAT 94–97
[2023-12-09] MEDS: ciprofloxacin 400 MG/200 ML PREMIX 200 MG IV ×2 (01:55→15:51)
[2023-12-09] MEDS: metroNIDAZOLE IV 500 MG/100 ML PREMIX 100 MG IV ×3 (03:54→19:55)
[2023-12-09 06:10] LABS: Basophils # 0.1 10^3/uL (0.0-0.1); Basophils % 0.5 %; Eosinophils # 0.5 10^3/uL (0.0-0.8); Eosinophils % 5.1 %; Hematocrit 36.6 % (36-47); Lymphocytes # 1.8 10^3/uL (0.8-4.8); Lymphocytes % 17.1 %; Mean Corpuscular HGB Conc 31.4 g/dL (30-55); Mean Corpuscular Hemoglobin 27.1 pg (27-33); Mean Corpuscular Volume 86.1 fl (85-98); Mean Platelet Volume 11.5 fL (7.4-10.4); Monocytes # 1.3 10^3/uL (0.2-0.9); Monocytes % 12.2 %; Neutrophils # 6.73 10^3/uL (1.8-7.7); Neutrophils % 64.7 %; Nucleated Red Blood Cells % 0 %; Platelet Count 142 10^3/cmm (157-399); Red Blood Count 4.25 10^6/uL (3.85-5.65); Red Cell Distribution Width 15.1 % (12.1-15.1)
[2023-12-09 06:33] LABS: Alanine Aminotransferase 399 U/L (0-33); Albumin Level 2.8 g/dL (3.5-5.2); Alkaline Phosphatase 52 U/L (35-105); Blood Urea Nitrogen 8 mg/dL (8-23); Calcium 8.5 mg/dL (8.5-10.5); Carbon Dioxide 28 mmol/L (22-29); Chloride 103 mmol/L (98-107); Creatinine Clr Calc Pharmacy 57.2796; Globulin 3.2 g/dL (1.3-4.6); Glucose 94 mg/dL (65-115); Osmolality Calculated 288 mOsm/kg (285-295); Sodium 140 mmol/L (136-145); Total Bilirubin 0.3 mg/dL (0.15-1.2)
[2023-12-09 06:39] LABS: Anion Gap 12.9 (5-19); Aspartate Amino Transferase 226 U/L (0-32); Potassium 3.9 mmol/L (3.5-5.1)
[2023-12-09] MEDS: doxycycline 100 mg Tablet PO ×2 (08:50→17:59)
[2023-12-09] MEDS: levothyroxine 75 mcg Tablet PO (08:50)
[2023-12-09] MEDS: divalproex DR 250 mg Tablet PO (08:50)
[2023-12-09] MEDS: linezolid premix 600 MG/300 ML PREMIX 300 MG IV ×2 (08:50→22:02)
[2023-12-09] MEDS: aspirin 325 mg Tablet PO (08:50)
--- NOTE | 2023-12-09 09:53 | P.PN_ITS ---
Subjective 2 Subjective: Patient doing well. No chest pain. Vitals/I&O/Wt Last Vital Signs Temp 97.6 F 12/09/23 07:54 Pulse 72 12/09/23 07:54 Resp 17 12/09/23 07:54 BP 125/65 12/09/23 07:54 Pulse Ox 95 12/09/23 07:54 O2 Del Method Room Air 12/09/23 07:54 12/08/23 12/09/23 12/09/23 22:59 06:59 14:59 Intake Total 418 / 1176 600 / 1776 Balance 418 / 1176 600 / 1776 Weight last 48 hrs Weight 166 lb 9 oz Weight 166 lb 9 oz Weight 169 lb Physical Exam 2 Narrative: GENERAL: Patient is alert, awake and oriented x3. [] NECK: No jugular vein distension. [] HEENT: No cyanosis. No icterus. No pallor. [] HEART: Regular S1 and S2. No murmur, rub or gallop. [] LUNGS: Clear to auscultate bilaterally. [] CENTRAL NERVOUS SYSTEM: Grossly nonfocal. [] EXTREMITIES: Lower extremities with no edema bilaterally. Data 12/10/23 02:58 12/10/23 02:58 Micro: Microbiology 12/08/23 11:22 Blood Culture - Preliminary Blood SPECIMEN COLLECTED 12/08/23 11:20 Blood Culture - Preliminary Blood SPECIMEN COLLECTED A&P Assessment and plan (1) Dyslipidemia: (2) Liver mass: (3) Adrenal mass: (4) Renal insufficiency: (5) Troponin level elevated: Plan Clinically patient appears improved. LFTs are improving. MRI brain does not show stroke. Plan for abdominal MRI to better assess live mass. Antibiotic therapy per primary team Repeat blood cultures are pending. Recommend ID evaluation. If no other source of bacteremia found and repeat cultures are also positive, can proceed with CHET. Thank you for involving us with care of this patient. Will continue to follow. Please call with questions. Attestations 2 Medical Necessity Statement*: Care expected to cross 2 midnights. Coding Level of Care Code Acute Code for g Fwd Diagnoses Dyslipidemia E78.5 Liver mass R16.0 Adrenal mass E27.8 Renal insufficiency N28.9 Troponin level elevated R79.89
[2023-12-09] MEDS: gadobenate dimeglumine 20 mL vial IV (10:03)
--- NOTE | 2023-12-09 11:00 | MRR_ITS ---
PROCEDURE INFORMATION: Exam: MR Abdomen Without Contrast; Liver Exam date and time: 12/09/2023 9:20 AM Age: 73 years old Clinical indication: Abnormal findings; Abnormal lab test; Elevated liver enzymes; Additional info: Assess for any liver mass, head w/wo done 12/07 unable to do abd same day TECHNIQUE: Imaging protocol: MR Abdomen without contrast. Exam focused on the liver. Contrast material: MULTI; Contrast volume: 16 ml; Contrast route: INTRAVENOUS (IV); COMPARISON: CT angio chest w abd pel w con 12/06/2023 2:45 PM FINDINGS: Pleural spaces: Small bilateral pleural effusions. Liver: There is a poorly defined area linear branching morphology in the right hepatic lobe extending from segment 8 of the liver towards the justin hepatis. Gallbladder and biliary ducts: This area has faint increased T2 weighted signal, faint decreased T1 weighted signal and peripheral enhancement that progresses on the delayed images. No biliary dilatation. Pancreas: Normal. Adrenal glands: Stable right adrenal nodule measuring 3.6 x 2.4 cm. Similar nodular thickening left adrenal gland. Kidneys and ureters: Simple cyst in the interpolar region right kidney measuring 1 point cm. Intraperitoneal space: No free fluid. Lymph nodes: No enlarged nodes. Bones/joints: Unremarkable. No suspicious lesions. MR/MR abdomen wo/w con* [id number] IMPRESSION: 1. Poorly defined linear area in the right hepatic lobe with peripheral enhancement on the delayed images. Findings can be related to infection versus metastasis. 2. Stable right adrenal nodule. COMMENTS: Consistent with the [employer]'s Incidental Findings Committee white paper (J Am Jayesh Radiol 2018): Any incidental renal lesion less than 1 cm or classified as too small to characterize, or any incidental cystic renal lesion characterized as simple-appearing, is likely benign. No follow-up imaging is recommended for these lesions per consensus recommendations based on imaging criteria.
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
[2023-12-09] MEDS: enoxaparin 40 mg/0.4 mL Syringe SUBCUT (19:54)
[2023-12-09] MEDS: pantoprazole 40 mg SDV IVP (19:55)
[2023-12-09] MEDS: acetaminophen 325 mg Tablet 650 MG PO (22:15)
[2023-12-10] VITALS (9 sets, daily range): BP systolic 122–160; BP diastolic 65–82; PULSE 66–81; RESP 15–17; TEMP 36.3–36.9; O2SAT 96–98; BMI 26.5
[2023-12-10] MEDS: ciprofloxacin 400 MG/200 ML PREMIX 200 MG IV ×2 (02:12→15:16)
[2023-12-10 03:36] LABS: Basophils % 0.4 %; Eosinophils # 0.6 10^3/uL (0.0-0.8); Eosinophils % 6.7 %; Lymphocytes # 2.1 10^3/uL (0.8-4.8); Lymphocytes % 23.5 %; Mean Corpuscular HGB Conc 31.1 g/dL (30-55); Mean Corpuscular Hemoglobin 26.6 pg (27-33); Mean Corpuscular Volume 85.6 fl (85-98); Mean Platelet Volume 11.3 fL (7.4-10.4); Monocytes # 1.1 10^3/uL (0.2-0.9); Monocytes % 12.4 %; Neutrophils # 5.12 10^3/uL (1.8-7.7); Neutrophils % 56.4 %; Nucleated Red Blood Cells % 0 %; Platelet Count 167 10^3/cmm (157-399); Red Blood Count 4.32 10^6/uL (3.85-5.65); White Blood Count 9.08 10^3/uL (3.29-11.43)
[2023-12-10 03:59] LABS: Alanine Aminotransferase 274 U/L (0-33); Albumin Level 2.9 g/dL (3.5-5.2); Alkaline Phosphatase 56 U/L (35-105); Anion Gap 12.4 (5-19); Aspartate Amino Transferase 114 U/L (0-32); Blood Urea Nitrogen 8 mg/dL (8-23); Calcium 8.8 mg/dL (8.5-10.5); Carbon Dioxide 29 mmol/L (22-29); Chloride 104 mmol/L (98-107); Creatinine Clr Calc Pharmacy 64.4395; Globulin 3.1 g/dL (1.3-4.6); Glucose 100 mg/dL (65-115); Osmolality Calculated 292 mOsm/kg (285-295); Potassium 3.4 mmol/L (3.5-5.1); Sodium 142 mmol/L (136-145); Total Bilirubin 0.2 mg/dL (0.15-1.2)
[2023-12-10] MEDS: metroNIDAZOLE IV 500 MG/100 ML PREMIX 100 MG IV ×3 (03:59→20:39)
--- NOTE | 2023-12-10 09:17 | P.PN_ITS ---
Subjective 2 Subjective: Patient is stable. LFTs improving. Vitals/I&O/Wt Last Vital Signs Temp 98.1 F 12/10/23 03:51 Pulse 81 12/10/23 07:32 Resp 17 12/10/23 07:32 BP 160/82 12/10/23 07:32 Pulse Ox 96 12/10/23 03:51 O2 Del Method Room Air 12/10/23 03:51 12/09/23 12/10/23 12/10/23 22:59 06:59 14:59 Intake Total 780 / 1778 690 / 2468 Balance 780 / 1778 690 / 2468 Weight last 48 hrs Weight 169 lb 8 oz Weight 166 lb 9 oz Weight 166 lb 9 oz Physical Exam 2 Narrative: GENERAL: Patient is alert, awake and oriented x3. [] NECK: No jugular vein distension. [] HEENT: No cyanosis. No icterus. No pallor. [] HEART: Regular S1 and S2. No murmur, rub or gallop. [] LUNGS: Clear to auscultate bilaterally. [] CENTRAL NERVOUS SYSTEM: Grossly nonfocal. [] EXTREMITIES: Lower extremities with no edema bilaterally. Data 12/11/23 04:17 12/11/23 04:17 Micro: Microbiology 12/08/23 11:22 Blood Culture - Preliminary Blood NEGATIVE TO DATE 12/08/23 11:20 Blood Culture - Preliminary Blood NEGATIVE TO DATE A&P Assessment and plan (1) Dyslipidemia: (2) Liver mass: (3) Adrenal mass: (4) Renal insufficiency: (5) Troponin level elevated: Plan Clinically patient has improved. ID evaluation. TTE did not show vegetations. Abdominal MRI performed. Thank you for involving us with care of this patient. Will continue to follow. Please call with questions. Attestations 2 Medical Necessity Statement*: Care expected to cross 2 midnights. Coding Level of Care Code Acute Code for [facility] Fwd Diagnoses Dyslipidemia E78.5 Liver mass R16.0 Adrenal mass E27.8 Renal insufficiency N28.9 Troponin level elevated R79.89
[2023-12-10] MEDS: levothyroxine 75 mcg Tablet PO (09:43)
[2023-12-10] MEDS: aspirin 325 mg Tablet PO (09:43)
[2023-12-10] MEDS: divalproex DR 250 mg Tablet PO (09:43)
[2023-12-10] MEDS: linezolid premix 600 MG/300 ML PREMIX 300 MG IV ×2 (09:43→21:55)
[2023-12-10] MEDS: doxycycline 100 mg Tablet PO ×2 (09:43→18:04)
[2023-12-10 18:09] LABS: Glucose Point of Care 127 mg/dL (70-110)
[2023-12-10] MEDS: pantoprazole 40 mg SDV IVP (20:38)
[2023-12-10] MEDS: enoxaparin 40 mg/0.4 mL Syringe SUBCUT (20:38)
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
[2023-12-11] VITALS (9 sets, daily range): BP systolic 123–168; BP diastolic 65–92; PULSE 63–73; RESP 16–20; TEMP 36.3–36.9; O2SAT 95–98
[2023-12-11] MEDS: ciprofloxacin 400 MG/200 ML PREMIX 200 MG IV ×2 (02:44→15:21)
[2023-12-11] MEDS: metroNIDAZOLE IV 500 MG/100 ML PREMIX 100 MG IV ×2 (03:56→12:02)
[2023-12-11 05:26] LABS: Basophils # 0.1 10^3/uL (0.0-0.1); Basophils % 0.6 %; Eosinophils # 0.8 10^3/uL (0.0-0.8); Hematocrit 37.6 % (36-47); Lymphocytes # 2.3 10^3/uL (0.8-4.8); Lymphocytes % 25.8 %; Mean Corpuscular HGB Conc 31.4 g/dL (30-55); Mean Corpuscular Hemoglobin 26.6 pg (27-33); Mean Corpuscular Volume 84.9 fl (85-98); Mean Platelet Volume 10.9 fL (7.4-10.4); Monocytes # 1.1 10^3/uL (0.2-0.9); Monocytes % 11.8 %; Neutrophils # 4.62 10^3/uL (1.8-7.7); Neutrophils % 52.1 %; Nucleated Red Blood Cells % 0 %; Platelet Count 195 10^3/cmm (157-399); Red Blood Count 4.43 10^6/uL (3.85-5.65); White Blood Count 8.87 10^3/uL (3.29-11.43)
[2023-12-11 05:43] LABS: Alanine Aminotransferase 184 U/L (0-33); Albumin Level 2.8 g/dL (3.5-5.2); Alkaline Phosphatase 61 U/L (35-105); Anion Gap 12.6 (5-19); Aspartate Amino Transferase 85 U/L (0-32); Blood Urea Nitrogen 8 mg/dL (8-23); Calcium 8.4 mg/dL (8.5-10.5); Carbon Dioxide 28 mmol/L (22-29); Chloride 103 mmol/L (98-107); Creatinine Clr Calc Pharmacy 65.6362; Globulin 3.2 g/dL (1.3-4.6); Glucose 99 mg/dL (65-115); Osmolality Calculated 288 mOsm/kg (285-295); Potassium 3.6 mmol/L (3.5-5.1); Sodium 140 mmol/L (136-145); Total Bilirubin 0.3 mg/dL (0.15-1.2)
[2023-12-11 05:59] LABS: HIV 1 & 2 Antibody Non-Reactive (Non-Reactiv); HIV 1 & 2 Antigen Non-Reactive (Non-Reactiv)
[2023-12-11] MEDS: divalproex DR 250 mg Tablet PO (09:18)
[2023-12-11] MEDS: aspirin 325 mg Tablet PO (09:18)
[2023-12-11] MEDS: linezolid premix 600 MG/300 ML PREMIX 300 MG IV (09:18)
[2023-12-11] MEDS: levothyroxine 75 mcg Tablet PO (09:18)
[2023-12-11] MEDS: doxycycline 100 mg Tablet PO ×2 (09:18→18:04)
--- NOTE | 2023-12-11 09:23 | PC.CHAP ---
Pastoral Care Encounter/Spiritual Assessment Type of Contact [] Declined technical marketing engineer visit [] Patient/Family/Request visit [] Outpatient visit [] Follow-up visit [] Physician referral [] Code/Alert [x] Routine visit [] Staff referral [] Actively dying [] Patient sleeping [] Family support [] [] Out of room [] Palliative care [] [] Receiving care in room [] Pre-surgical visit [] Trauma [] Long length of stay [] ICU visit [] Other: Relational/Emotional Strength [] Patient feels connected with others/family/visitors/staff [] Distress [] Loneliness/isolation [] Abandonment Spirituality of Patient [] Person of Gemini [] Attends Yazidism of their Gemini [] Believes in Prayer [] Reads Bible or Latter Day materials [] There are Spiritual issues to be addressed Screen Printing Press Operator Interventions [] Prayer [x] Active listening [] Non-anxious presence [] Spiritual/emotional support [] Crisis/trauma care [] Spiritual counseling [] Bereavement support [] Provided bereavement packet [] Provided Bible/devotional materials [] Provided toy/stuffed animal, coloring book to patient or family member [] Provided Communion [] Anointing/[place] [] Salvation [] Completed spiritual assessment [] Other: Impact on Illness or Injury [] Angry [] Fearful [] Anxious [] Often cries [] Exhaustion [] Unable to work [] Unable to attend bahai [] Unable to walk/stand [] Unable to read [] Unable to drive [] Unable to eat/drink [] Unable to sleep [] Unable to be with family [] Patient intubated [] Other: Summary did not want prayer Time spent with patient 10 min
--- NOTE | 2023-12-11 13:45 | PC.SOCIAL ---
IMM Update pg 2 of IMM Updated and reviewed w/ patient. Copy provided and copy dated, initialed and placed in chart.
--- NOTE | 2023-12-11 15:18 | P.PN_ITS ---
Subjective 2 Subjective: Patient is feeling well. no chest pain. Vitals/I&O/Wt Last Vital Signs Temp 97.4 F L 12/11/23 11:47 Pulse 63 12/11/23 11:47 Resp 18 12/11/23 13:00 BP 123/65 12/11/23 11:47 Pulse Ox 97 12/11/23 11:47 O2 Del Method Room Air 12/11/23 11:47 12/11/23 12/11/23 12/11/23 06:59 14:59 22:59 Intake Total 300 / 2120.833 880 / 880 Balance 300 / 2120.833 880 / 880 Weight last 48 hrs Weight 173 lb 7 oz Weight 169 lb 8 oz Physical Exam 2 Narrative: GENERAL: Patient is alert, awake and oriented x3. [] NECK: No jugular vein distension. [] HEENT: No cyanosis. No icterus. No pallor. [] HEART: Regular S1 and S2. No murmur, rub or gallop. [] LUNGS: Clear to auscultate bilaterally. [] CENTRAL NERVOUS SYSTEM: Grossly nonfocal. [] EXTREMITIES: Lower extremities with no edema bilaterally. Data 12/12/23 05:25 12/12/23 05:25 Micro: Microbiology 12/06/23 13:30 Blood Culture - Final Blood Staphylococcus warneri Bacillus subtilis 12/06/23 13:30 Blood Culture - Final Blood Bacillus subtilis Staphylococcus warneri A&P Assessment and plan (1) Dyslipidemia: (2) Liver mass: (3) Adrenal mass: (4) Renal insufficiency: (5) Troponin level elevated: Plan Patient is improving clinically. Continue medical therapy. ID evaluation. Can perform CHET if ID recommends. Bacteria isolated on the cultures are not typical for endocarditis and she has been improving clinically. Thank you for involving us with care of this patient. Will continue to follow. Please call with questions. Attestations 2 Medical Necessity Statement*: Care expected to cross 2 midnights. Coding Level of Care Code Acute Code for [facility] Fwd Diagnoses Dyslipidemia E78.5 Liver mass R16.0 Adrenal mass E27.8 Renal insufficiency N28.9 Troponin level elevated R79.89
--- NOTE | 2023-12-11 15:25 | P.PN_ITS ---
Subjective 2 Subjective: Hospital course, labs appreciated. Seen with daughter at bedside. Patient states she is feeling a lot better. Denies any nausea vomiting, headache. Complaining of diarrhea which started around 2 days ago. Denies any abdominal pain. Afebrile. Remains on room air. Vitals/I&O/Wt Last Vital Signs Temp 97.4 F L 12/11/23 11:47 Pulse 63 12/11/23 11:47 Resp 18 12/11/23 13:00 BP 123/65 12/11/23 11:47 Pulse Ox 97 12/11/23 11:47 O2 Del Method Room Air 12/11/23 11:47 12/11/23 12/11/23 12/11/23 06:59 14:59 22:59 Intake Total 300 / 2120.833 880 / 880 Balance 300 / 2120.833 880 / 880 Weight last 48 hrs Weight 78.67 kg Weight 76.884 kg Physical Exam 2 Narrative: Awake, alert, appears comfortable. Const: COMMON NORMALS: patient oriented x3 and alert GENERAL APPEARANCE: c ooperative ORIENTATION/CONSCIOUSNESS: Yes awake OTHER: Having chills. HENMT: COMMON NORMALS: oropharynx normal Neck/C-Spine: COMMON NORMALS: no JVD Resp: COMMON NORMALS: normal respiratory effort and clear to auscultation bilaterally AUSCULTATION: clear to auscultation bilaterally Cardio: COMMON NORMALS: no JVD, regular rhythm, S1 normal heart sound present, S2 normal heart sound present and No murmurs present (Cardio) RHYTHM: regular rhythm HEART SOUNDS: S1 normal heart sound present and S2 normal heart sound present GI: COMMON NORMALS: Normal to inspection, nondistended, normoactive bowel sounds present and Soft to palpation PALPATION: Yes Soft to palpation O THER: Not tender across lower abdomen. Extremity: COMMON NORMALS: no joint enlargement and no pedal edema Neuro: COMMON NORMALS: patient oriented x3 and moves all extremities S ENSORIUM/ORIENTATION: Yes alert Skin: COMMON NORMALS: no rashes or lesions noted NARRATIVE SKIN EXAM: Pale GENERAL SKIN EXAM: no rashes or lesions noted Data 12/11/23 04:17 12/11/23 04:17 Micro: Microbiology 12/06/23 13:30 Blood Culture - Final Blood Staphylococcus warneri Bacillus subtilis 07/03/24 13:30 Blood Culture - Final Blood Bacillus subtilis Staphylococcus warneri A&P Assessment and plan (1) Positive blood culture: Blood culture from admission positive for Staphylococcus Warneri and bacillus species. Cannot rule out contamination. Repeat blood culture from 12/07 so far negative. Patient has remained afebrile. No further leukocytosis. Only had leukocytosis on day of admission. Transthoracic echocardiogram done negative for endocarditis. History of multiple tick bites. With history of kayaking 10 days to 2 weeks prior to start of symptoms. Does have dogs as pets. Cannot deny multiple factors. Pets or while working outside. Patient currently on IV ciprofloxacin, IV linezolid, IV Flagyl, oral doxycycline. For now we will continue with IV ciprofloxacin and linezolid along with oral doxycycline tick panel along with tularemia and stroke are pending. Discontinue Flagyl. Urine culture growing Enterobacter cloacae. Sensitive to ciprofloxacin. ID consultation for further recommendations. Most likely patient can be discharged on oral ciprofloxacin and linezolid for overall 2-week of course. Does have diarrhea right now. Will rule out C. difficile. (2) Episode of unresponsiveness: Stroke along with seizures ruled out on admission. Could be in setting of vasovagal. No recurrence of symptoms since admission. No arrhythmia on telemetry. Did have significant troponin elevation on admission. Cardiology recommendations appreciated. No concerns for CAD for now. (3) Word finding difficulty: Appreciate CT head, carotid Doppler, head MRI done during hospitalization. No concerns for stroke or seizure for now. Appreciate, lipid panel. Statin was started yet given concerns for transaminitis. Check A1c. Continue with aspirin 81 mg oral daily. (4) SCOTTY (acute kidney injury): Resolved. Continue with oral hydration. (5) Lactic acidosis: (6) SIRS (systemic inflammatory response syndrome): (7) Liver mass: Patient was being monitored as an outpatient with further workup for right axillary lymph node enlargement. CT abdomen pelvis done on admission concerning for a possible liver mass, metastatic adenopathy along with possible adrenal mass. Appreciate MRI of the liver. Cannot rule out malignancy for now. Patient will be set up as an outpatient for possible lymph node biopsy. (8) Adrenal mass: Adrenal nodules will need additional imaging with triple phase CT. random cortisol obtained, 20.12. Plan Mild transaminitis: Mild improvement. Tick panel pending. Patient does not have concerned about liver masses, with possibility of a possible malignancy. HIV and hepatitis panel negative. Discharge plan: Plan to discharge most likely within next 24 hours patient remains hemodynamically stable and afebrile on possible oral antibiotic depending on ID recommendations. Full code Protonix for PUD prophylaxis Lovenox for DVT prophylaxis Attestations 2 Medical Necessity Statement*: Requested hospitalization for management of bacteremia while outpatient antibiotics are set up in a patient who was originally admitted for acute kidney injury and possibility of word finding difficulty Diagnoses Positive blood culture R78.81 Episode of unresponsiveness R40.4 Word finding difficulty R47.89 SCOTTY (acute kidney injury) N17.9 Lactic acidosis E87.20 SIRS (systemic inflammatory response syndrome) R65.10 Liver mass R16.0 Adrenal mass E27.8
[2023-12-11] MEDS: linezolid 600 mg Tablet PO (16:29)
--- NOTE | 2023-12-11 19:32 | P.CONIM_ITS ---
Providers/Reason For Consult 2 Attending Physician: Flaco Vanegas MD Primary Care Provider: Lacey Manzano DO History of Present Illness History of Present Illness Muna Lynn is a 73 year old female Medications/Allergies Home Medications Medication Instructions Recorded Confirmed Last Taken Type calcium carbonate (Calcium 600) 600 mg PO DAILY 07/19/22 12/06/23 12/05/23 History cholecalciferol (vitamin D3) 25 25 mcg PO DAILY 07/19/22 12/06/23 12/05/23 History mcg (1,000 unit) capsule nitrofurantoin 100 mg PO Q12H 5 days #10 caps 12/05/23 12/06/23 12/06/23 Rx monohydrate/macrocrystals 100 mg capsule (Macrobid) tamsulosin 0.4 mg capsule (Flomax) 0.4 mg PO DAILY #20 caps 12/05/23 12/06/23 12/05/23 Rx divalproex 250 mg tablet,delayed 250 mg PO DAILY 12/06/23 12/06/23 12/05/23 History release levothyroxine 75 mcg tablet 75 mcg PO DAILY 12/06/23 12/06/23 12/05/23 History nystatin 100,000 unit/gram topical 1 applic topical BID PRN Skin 12/06/23 12/06/23 Unknown History powder (Nystop) Irritation paroxetine HCl 30 mg tablet 30 mg PO DAILY 12/06/23 12/06/23 12/05/23 History rosuvastatin 10 mg tablet 10 mg PO DAILY 12/06/23 12/06/23 12/05/23 History Allergies Allergy/AdvReac Type Severity Reaction Status Date / Time Penicillins Allergy Mild ALGY-Rash Verified 12/05/23 11:58 Sulfa (Sulfonamide Allergy Mild ALGY-Rash Verified 12/05/23 11:58 Antibiotics) adhesive tape Allergy BLISTERS Verified 12/05/23 11:58 Current Medications Generic Name Dose Route Start Last Admin Trade Name Freq PRN Reason Stop Dose Admin Acetaminophen 650 mg 12/06/23 19:29 12/09/23 22:15 Acetaminophen 325 Mg Tablet PO 650 mg Q6H PRN Administration Mild/Mod Pain Or Temp >/= 101 Divalproex Sodium 250 mg 12/07/23 09:00 12/11/23 09:[address] 250 Mg Tablet PO 250 mg DAILY DONATO Administration Doxycycline Monohydrate 100 mg 12/08/23 18:00 12/11/23 18:04 Doxycycline 100 Mg Tablet PO 100 mg BID DONATO Administration Protocol Levothyroxine Sodium 75 mcg 12/07/23 09:00 12/11/23 09:18 Levothyroxine 75 Mcg Tablet PO 75 mcg DAILY DONATO Administration Linezolid 600 mg 12/11/23 15:30 12/11/23 16:29 Linezolid 600 Mg Tablet PO 600 mg Q12H DONATO Administration Protocol Pantoprazole Sodium 40 mg 12/06/23 19:30 12/10/23 20:38 Pantoprazole 40 Mg Sdv IVP 40 mg Q24H DONATO Administration Paroxetine HCl 30 mg 12/07/23 09:00 12/07/23 08:36 Paroxetine 20 Mg Tablet PO 30 mg DAILY DONATO Administration PFSH Acute 2 PFSH: Medical History Renal insufficiency Adrenal mass Liver mass Hx of urethral stricture Dyslipidemia Depression Hypothyroidism Onychomycosis Family History Father Stroke Hypertension Social History Smoking and tobacco/nicotine status: unknown if used tobacco/nicotine Second hand smoke exposure: No Alcohol intake: former Substance/Drug Use: current Other substance/drug use details: Medical marijuana Vitals/I&O/Wt Last Vital Signs Temp 97.7 F 12/11/23 18:08 Pulse 65 12/11/23 18:08 Resp 20 H 12/11/23 18:08 BP 168/92 12/11/23 18:08 Pulse Ox 97 12/11/23 18:08 O2 Del Method Room Air 12/11/23 18:08 12/11/23 12/11/23 12/11/23 06:59 14:59 22:59 Intake Total 300 / 2120.833 880 / 880 680 / 1560 Balance 300 / 2120.833 880 / 880 680 / 1560 Weight last 48 hrs Weight 78.67 kg Weight 76.884 kg Data 12/11/23 04:17 12/11/23 04:17 Micro: Microbiology 12/06/23 13:30 Blood Culture - Final Blood Staphylococcus warneri Bacillus subtilis 12/06/23 13:30 Blood Culture - Final Blood Bacillus subtilis Staphylococcus warneri Coding Level of Care Code Acute Code for [facility] Fwd
[2023-12-11] MEDS: pantoprazole 40 mg SDV IVP (21:10)
[2023-12-11] MEDS: ciprofloxacin 500 mg Tablet PO (21:11)
[2023-12-11 21:16] LABS: C.Diff PCR (Lab) NEGATIVE (Negative)
[2023-12-12] VITALS (9 sets, daily range): BP systolic 131–144; BP diastolic 72–77; PULSE 62–74; RESP 11–18; TEMP 36.6–37.1; O2SAT 92–96
[2023-12-12] MEDS: linezolid 600 mg Tablet PO ×2 (03:58→15:53)
[2023-12-12 05:50] LABS: Basophils # 0.1 10^3/uL (0.0-0.1); Basophils % 0.6 %; Eosinophils # 0.8 10^3/uL (0.0-0.8); Eosinophils % 9.1 %; Hematocrit 40.1 % (36-47); Lymphocytes # 2.1 10^3/uL (0.8-4.8); Mean Corpuscular HGB Conc 30.9 g/dL (30-55); Mean Corpuscular Hemoglobin 26.9 pg (27-33); Mean Platelet Volume 10.8 fL (7.4-10.4); Monocytes # 0.9 10^3/uL (0.2-0.9); Monocytes % 10.7 %; Neutrophils # 4.75 10^3/uL (1.8-7.7); Neutrophils % 54.9 %; Nucleated Red Blood Cells % 0 %; Platelet Count 230 10^3/cmm (157-399); Red Blood Count 4.61 10^6/uL (3.85-5.65); Red Cell Distribution Width 15.1 % (12.1-15.1); White Blood Count 8.66 10^3/uL (3.29-11.43)
[2023-12-12 06:15] LABS: Alanine Aminotransferase 153 U/L (0-33); Albumin Level 2.9 g/dL (3.5-5.2); Alkaline Phosphatase 66 U/L (35-105); Anion Gap 14.2 (5-19); Aspartate Amino Transferase 82 U/L (0-32); Blood Urea Nitrogen 10 mg/dL (8-23); Calcium 8.9 mg/dL (8.5-10.5); Carbon Dioxide 27 mmol/L (22-29); Chloride 105 mmol/L (98-107); Creatinine Clr Calc Pharmacy 57.7052; Globulin 3.5 g/dL (1.3-4.6); Glucose 99 mg/dL (65-115); Osmolality Calculated 293 mOsm/kg (285-295); Potassium 4.2 mmol/L (3.5-5.1); Sodium 142 mmol/L (136-145); Total Bilirubin 0.3 mg/dL (0.15-1.2); Total Protein 6.4 g/dL (6.6-8.7)
--- NOTE | 2023-12-12 06:55 | P.PN_ITS ---
Subjective 2 Subjective: Patient is doing well. no chest pain Vitals/I&O/Wt Last Vital Signs Temp 97.8 F 12/12/23 04:00 Pulse 62 12/12/23 06:00 Resp 18 12/12/23 04:00 BP 144/75 12/12/23 04:00 Pulse Ox 92 12/12/23 04:00 O2 Del Method Room Air 12/12/23 04:00 12/11/23 12/11/23 12/12/23 14:59 22:59 06:59 Intake Total 880 / 880 680 / 1560 Balance 880 / 880 680 / 1560 Weight last 48 hrs Weight 169 lb 5 oz Weight 173 lb 7 oz Physical Exam 2 Narrative: GENERAL: Patient is alert, awake and oriented x3. [] NECK: No jugular vein distension. [] HEENT: No cyanosis. No icterus. No pallor. [] HEART: Regular S1 and S2. No murmur, rub or gallop. [] LUNGS: Clear to auscultate bilaterally. [] CENTRAL NERVOUS SYSTEM: Grossly nonfocal. [] EXTREMITIES: Lower extremities with no edema bilaterally. Data 12/12/23 05:25 12/12/23 05:25 Micro: Microbiology 12/11/23 19:59 Stool Lactoferrin - Final Stool Occult Blood (FIT) - Final A&P Assessment and plan (1) Dyslipidemia: (2) Liver mass: (3) Adrenal mass: (4) Renal insufficiency: (5) Troponin level elevated: Plan As patient is clinically stable, can proceed with stress test to rule out ischemia, had significant troponin elevation on admission. Antibiotic therapy per ID and primary team Thank you for involving us with care of this patient. Will continue to follow. Please call with questions. Attestations 2 Medical Necessity Statement*: Care expected to cross 2 midnights. Coding Level of Care Code Acute Code for [facility] Fwd Diagnoses Dyslipidemia E78.5 Liver mass R16.0 Adrenal mass E27.8 Renal insufficiency N28.9 Troponin level elevated R79.89
[2023-12-12] MEDS: divalproex DR 250 mg Tablet PO (09:07)
[2023-12-12] MEDS: aspirin 81 mg EC Tablet PO (09:08)
[2023-12-12] MEDS: levothyroxine 75 mcg Tablet PO (09:08)
[2023-12-12] MEDS: doxycycline 100 mg Tablet PO ×2 (09:08→18:41)
[2023-12-12] MEDS: ciprofloxacin 500 mg Tablet PO ×2 (09:12→21:11)
--- NOTE | 2023-12-12 14:14 | PC.NURSE ---
Dr. Ibarra at bedside to perform ultrasound guided biopsy to right axilla. Time out performed by myself and Dr. Ibarra and Storm Ann [facility] participated. Patient is in agreement with information. Procedure completed per Dr. Ibarra's documentation.
--- NOTE | 2023-12-12 14:33 | P.PN_ITS ---
Subjective 2 Subjective: No acute events overnight. Patient has remained hemodynamically stable and afebrile. Denies any nausea, vomiting, headache. Vitals/I&O/Wt Last Vital Signs Temp 97.8 F 12/12/23 11:37 Pulse 74 12/12/23 13:56 Resp 17 12/12/23 11:37 BP 131/72 12/12/23 11:37 Pulse Ox 94 12/12/23 13:56 O2 Del Method Room Air 12/12/23 13:56 12/11/23 12/12/23 12/12/23 22:59 06:59 14:59 Intake Total 680 / 1560 120 / 120 Output Total 240 / 240 Balance 680 / 1560 -120 / -120 Weight last 48 hrs Weight 76.799 kg Weight 78.67 kg Physical Exam 2 Narrative: Awake, alert, appears comfortable. Const: COMMON NORMALS: patient oriented x3 and alert GENERAL APPEARANCE: c ooperative ORIENTATION/CONSCIOUSNESS: Yes awake OTHER: Having chills. HENMT: COMMON NORMALS: oropharynx normal Neck/C-Spine: COMMON NORMALS: no JVD Resp: COMMON NORMALS: normal respiratory effort and clear to auscultation bilaterally AUSCULTATION: clear to auscultation bilaterally Cardio: COMMON NORMALS: no JVD, regular rhythm, S1 normal heart sound present, S2 normal heart sound present and No murmurs present (Cardio) RHYTHM: regular rhythm HEART SOUNDS: S1 normal heart sound present and S2 normal heart sound present GI: COMMON NORMALS: Normal to inspection, nondistended, normoactive bowel sounds present and Soft to palpation PALPATION: Yes Soft to palpation O THER: Not tender across lower abdomen. Extremity: COMMON NORMALS: no joint enlargement and no pedal edema Neuro: COMMON NORMALS: patient oriented x3 and moves all extremities S ENSORIUM/ORIENTATION: Yes alert Skin: COMMON NORMALS: no rashes or lesions noted NARRATIVE SKIN EXAM: Pale GENERAL SKIN EXAM: no rashes or lesions noted Data 12/12/23 05:25 12/12/23 05:25 Micro: Microbiology 12/11/23 19:59 Stool Lactoferrin - Final Stool Occult Blood (FIT) - Final A&P Assessment and plan (1) Positive blood culture: Blood culture from admission positive for Staphylococcus Warneri and bacillus species. Cannot rule out contamination. Repeat blood culture from 12/07 so far negative. Patient has remained afebrile. No further leukocytosis. Only had leukocytosis on day of admission. Transthoracic echocardiogram done negative for endocarditis. History of multiple tick bites. With history of kayaking 10 days to 2 weeks prior to start of symptoms. Does have dogs as pets. Cannot deny multiple factors. Pets or while working outside. Patient currently on IV ciprofloxacin, IV linezolid, IV Flagyl, oral doxycycline. For now we will continue with IV ciprofloxacin and linezolid along with oral doxycycline tick panel along with tularemia and stroke are pending. Discontinue Flagyl. Urine culture growing Enterobacter cloacae. Sensitive to ciprofloxacin. ID consultation for further recommendations. Most likely patient can be discharged on oral ciprofloxacin and linezolid for overall 2-week of course. Does have diarrhea right now. Will rule out C. difficile. (2) Episode of unresponsiveness: Stroke along with seizures ruled out on admission. Could be in setting of vasovagal. No recurrence of symptoms since admission. No arrhythmia on telemetry. Did have significant troponin elevation on admission. Cardiology recommendations appreciated. No concerns for CAD for now. (3) Word finding difficulty: Appreciate CT head, carotid Doppler, head MRI done during hospitalization. No concerns for stroke or seizure for now. Appreciate, lipid panel. Statin was started yet given concerns for transaminitis. Check A1c. Continue with aspirin 81 mg oral daily. (4) SCOTTY (acute kidney injury): Resolved. Continue with oral hydration. (5) Lactic acidosis: (6) SIRS (systemic inflammatory response syndrome): (7) Liver mass: Patient was being monitored as an outpatient with further workup for right axillary lymph node enlargement. CT abdomen pelvis done on admission concerning for a possible liver mass, metastatic adenopathy along with possible adrenal mass. Appreciate MRI of the liver. Cannot rule out malignancy for now. Patient will be set up as an outpatient for possible lymph node biopsy. (8) Adrenal mass: Adrenal nodules will need additional imaging with triple phase CT. random cortisol obtained, 20.12. Plan Mild transaminitis: Mild improvement. Tick panel pending. Patient does not have concerned about liver masses, with possibility of a possible malignancy. HIV and hepatitis panel negative. Discharge plan: Plan to discharge most likely within next 24 hours patient remains hemodynamically stable and afebrile on possible oral antibiotic depending on ID recommendations. Plan for the day: Blood culture from 12/07 so far negative. Original blood cultures could be contaminated. Appreciate ID recommendations. For now we will plan to possibly discharge on oral Cipro and linezolid for overall 2-week course with last dose on 12/21. Tick panel, tularemia studies pending. Bartonella and Brucella studies sent. Plan for lymph node biopsy today. Discussed in detail with IR. Patient has been explained about possibility of hematoma versus bleeding. She is agreeable for the procedure. Given significant troponin elevation on admission plan for Lexiscan stress test in AM. Patient is agreeable. She remains chest pain-free. Stool studies awaited. C. difficile negative. Full code Protonix for PUD prophylaxis Lovenox for DVT prophylaxis Attestations 2 Medical Necessity Statement*: Requires further hospitalization for management of positive blood cultures, non- ST elevation TX as patient requires further ACS workup, significant lymphadenopathy as patient requires lymph node biopsy to rule out lymphoma versus infectious process Diagnoses Positive blood culture R78.81 Episode of unresponsiveness R40.4 Word finding difficulty R47.89 SCOTTY (acute kidney injury) N17.9 Lactic acidosis E87.20 SIRS (systemic inflammatory response syndrome) R65.10 Liver mass R16.0 Adrenal mass E27.8
[2023-12-12 15:58] LABS: Cyto Order Verification No Order
--- NOTE | 2023-12-12 16:43 | PC.NURSE ---
s/p US biopsy on right lymph node near armpit Pt has transparent dressing. noted small amt of blood. pt denies any pain at the site.
--- NOTE | 2023-12-12 17:17 | US_ITS ---
WS: [id number] ULTRASOUND-GUIDED RIGHT AXILLARY LYMPH NODE BIOPSY INDICATION: RIGHT axillary lymphadenopathy TECHNIQUE: The procedure including risks, benefits, and complications were discussed with the patient who agreed to proceed. Using sterile technique, patient was prepped and draped in the usual sterile fashion. Timeout was performed. After 1% lidocaine, using ultrasound guidance, Approximately six 20- gauge cores were obtained of an enlarged RIGHT axillary lymph node. No immediate complications. Patho logy is pending. US/US biopsy lymph node [id number] IMPRESSION: 1. Uncomplicated ultrasound-guided RIGHT axillary lymph node biopsy. 2. No immediate complications. 3. Pathology is pending.
[2023-12-12] MEDS: acetaminophen 325 mg Tablet 650 MG PO (19:04)
[2023-12-12] MEDS: pantoprazole 40 mg SDV IVP (20:30)
[2023-12-12 21:53] LABS: E. Chaffeensis AB IGG <1:64; E. Chaffeensis AB IGM <1:20
[2023-12-12 22:49] LABS: F.tularensis IgG AB Serum Negative (Negative); F.tularensis IgM AB Serum Negative (Negative)
[2023-12-13] VITALS: BP 144/79; PULSE 66; RESP 16; O2SAT 95
[2023-12-13] MEDS: linezolid 600 mg Tablet PO ×2 (03:23→16:57)
[2023-12-13 03:55] VITALS: BP 128/66; PULSE 62; RESP 15; TEMP 36.7; O2SAT 97
[2023-12-13 06:00] VITALS: PULSE 70
[2023-12-13] MEDS: regadenoson 0.4 Mg/5 ml Syringe IVP (07:25)
[2023-12-13 07:30] VITALS: BP 146/72; PULSE 82
[2023-12-13] MEDS: divalproex DR 250 mg Tablet PO (09:37)
[2023-12-13] MEDS: doxycycline 100 mg Tablet PO (09:38)
[2023-12-13] MEDS: aspirin 81 mg EC Tablet PO (09:38)
[2023-12-13] MEDS: levothyroxine 75 mcg Tablet PO (09:38)
--- NOTE | 2023-12-13 09:40 | PM.PN ---
Vitals/I&O/Wt Last Vital Signs Temp 98.0 F 12/13/23 03:55 Pulse 82 12/13/23 07:30 Resp 15 12/13/23 03:55 BP 146/72 12/13/23 07:30 Pulse Ox 97 12/13/23 03:55 O2 Del Method Room Air 12/13/23 03:55 12/12/23 12/13/23 12/13/23 22:59 06:59 14:59 Intake Total 480 / 600 480 / 1080 240 / 240 Balance 480 / 360 480 / 840 240 / 240 Weight last 48 hrs Weight 168 lb Weight 169 lb 5 oz Data 12/12/23 05:25 12/12/23 05:25 Coding Level of Care Code Acute Code for Chg Fwd
--- NOTE | 2023-12-13 09:47 | P.DS_ITS ---
Discharge Providers Date of Admission: 12/06/23 17:11 Date of Discharge: December 13, 2023 Attending Provider at Admission: Adrian Stone Attending Provider at Discharge: Flaco Vanegas MD Consults: Cardiology: Dr. Bennett ID: Dr. Torres Primary Care Provider: Lacey Manzano DO Diagnoses at Discharge Discharge Diagnosis (1) Dyslipidemia: Status: Chronic (2) Liver mass: Status: Acute (3) Adrenal mass: Status: Acute (4) Renal insufficiency: Status: Acute (5) Troponin level elevated: Status: Acute Reason for Visit Reason for Visit: Onset of weakness Brief History: History as per HPI: Pleasant 73-year-old lady with hypothyroidism, HLD, in process of setting up lymph node biopsy after incidental finding on mammography and breast ultrasound with 3.4 x 3.2 x 2.2 cm enlargement mildly suspicious appearance in the right ax one[place] was brought in for evaluation to ER today after at home her observed her to have an episode of unresponsiveness after ambulation, with gaze deviation, confusion, then with word finding difficulty, reportedly had an additional episode after EMS had arrived and to pick her up. She reportedly had started feeling unwell around Monday, was having malaise, leg, and has not really been up and around since then. Yesterday she had had some nausea but did not vomit. She is having chills, although they have been trying to measure her fever and did not report any. In ER initially stroke code was called, ER physician saw her and she went for CAT scan she was not found to have any focal deficits, of the head showed no acute intracranial abnormality. She did have a recent treatment for urinary tract infection and kidney stone with Macrobid and tamsulosin. They in ER without suggestion of UTI. She was noted to have leukocytosis of 16.5. Metabolic alkalosis, 7 point 11/28/1989 2.5. Mild SCOTTY, BUN 30, creatinine 1.2. Lactic acid 5. Mild transaminitis, AST 44, ALT 42. T. bili and alk phos normal. UDS positive for marijuana. Troponin came back 60 times abnormal at 587. 2-hour troponin at 461. NT proBNP 10,542. EKG with Q waves in V1 and V2. Second EKG appears to report atrial fibrillation, although she does have P waves before QRS's, although P waves have different quality. She and her state that she has some history of atrial fibrillation, he is not on aspirin or anticoagulation. The chest, abdomen pelvis obtained in ER showed a large poorly defined area of nodular glistening involving the liver. Abnormality demonstrating somewhat linear overall shape and extending abdominal living. To the medial segment of left hepatic lobe. 10.3 cm overall length, 4 cm width. Unremarkable gallbladder and biliary ducts. Additionally finding of carotid 3.6 cm edematous mass involving the right adrenal gland as well as left adrenal gland with edema and mild enlargement. Findings suggestive of metastatic disease. Knees are new findings for her. She states she otherwise already has an appointment for lymph node biopsy in the right axilla. Additionally she and her do report multiple tick bites. Hospital Course Hospital Course Patient was admitted to the ER for further evaluation and management. On admission stroke and seizures were ruled out with a negative CT head. MRI brain was done which also ruled out stroke. She did have acute kidney injury and lactic acidosis on admission. She was started on broad-spectrum antibiotics and IV fluids with concerns for possible sepsis. On admission her troponin levels were also found to be elevated for which cardiology was consulted who recommended against anticoagulation with troponin most likely being known cardiac in nature. Echocardiogram was done which showed a normal EF without regional wall motion abnormality. Her blood cultures from admission came back positive for Staphylococcus Warneri and Bacillus Subtilis. Repeat blood cultures from 12/07 are so far negative. ID was consulted. Given significant presentation tick infection and tularemia was ruled out. Some investigations including Bartonella and Brucella are pending. Patient during hospitalization remained hemodynamically stable, afebrile without arrhythmia. CT abdomen pelvis from admission showed large area of mass effect involving the liver with high suspicion of neoplasm along with edematous nodules in both the adrenals again suggesting of metastatic disease. She underwent axillary lymph node biopsy on 12/11 which was uneventful. Pathology so far pending. Culture from lymph node is also pending. Abdominal MRI was done which again showed the poorly defined hepatic right lobe enhancement. She underwent cardiac stress test on 12/12 which was negative for acute ischemia. She has been discharged hemodynamically stable condition on oral ciprofloxacin and linezolid for next 9 days which will be 14 days from the last positive blood cultures with advised to follow-up with ID and primary team as an outpatient within next 1 week to 10 days for further management and to follow-up the axillary lymph node biopsy results. Physical Exam Narrative: Awake, alert, appears comfortable. Const: COMMON NORMALS: patient oriented x3 and alert GENERAL APPEARANCE: cooperative ORIENTATION/CONSCIOUSNESS: Yes awake OTHER: Having chills. HENMT: COMMON NORMALS: oropharynx normal Neck/C-Spine: COMMON NORMALS: no JVD Resp: COMMON NORMALS: normal respiratory effort and clear to auscultation bilaterally AUSCULTATION: clear to auscultation bilaterally Cardio: COMMON NORMALS: no JVD, regular rhythm, S1 normal heart sound present, S2 normal heart sound present and No murmurs present (Cardio) RHYTHM: regular rhythm HEART SOUNDS: S1 normal heart sound present and S2 normal heart sound present GI: COMMON NORMALS: Normal to inspection, nondistended, normoactive bowel sounds present and Soft to palpation PALPATION: Yes Soft to palpation OTHER: Not tender across lower abdomen. Extremity: COMMON NORMALS: no joint enlargement and no pedal edema Neuro: COMMON NORMALS: patient oriented x3 and moves all extremities SENSORIUM/ORIENTATION: Yes alert Skin: COMMON NORMALS: no rashes or lesions noted NARRATIVE SKIN EXAM: Pale GENERAL SKIN EXAM: no rashes or lesions noted Discharge Data Studies Completed and Pending Completed Studies During Hospitalization Category Date Time Status CT head thrombolytic [id number] Stat Cat Scan 12/06/23 12:[address] abdomen pelvis [CT angio chest w abd pel w Cat Scan 12/06/23 14:05 Completed con] Stat Cardiac Stress Test MIBI [Sestamibi Stress Test Request Exams 12/08/23 08:00 Draft ] Routine XR chest 1V portable [id number] Stat Exams 12/06/23 12:53 Completed MR abdomen wo/w con* [id number] Routine MRI 12/09/23 11:00 Completed MR head wo/w con [id number] Routine MRI 12/08/23 06:00 Completed NM ernestina perf SPECT r/s* [id number] Routine Nuc Med 12/13/23 14:37 Completed CV carotid duplex BI* [id number] Routine Ultrasound 12/06/23 20:45 Completed US biopsy lymph node [id number] Routine Ultrasound 12/12/23 17:17 Completed US echo complete [CV. echo complete* [id number]] Stat Ultrasound 12/06/23 16:36 Completed US liver [id number] Routine Ultrasound 07/03/24 20:09 Completed Pending at discharge Category Date Time Status Sestamibi Stress Test Request Routine Exams 12/12/23 14:37 Ordered Bartonella Species AB(IgG,IgM) AM LABS Lab 12/12/23 05:25 Received Blood Culture Stat Lab 12/08/23 11:22 Results Brucella AB Agglutination AM LABS Lab 12/12/23 05:25 Received OVA and Parasites, Conc and PE Routine Lab 12/11/23 19:59 Received Salmonella / Shigella / Campy Routine Lab 12/11/23 19:59 Received Tick Panel Stat Lab 12/06/23 16:40 Results Tissue Culture and Gram Stain Routine Lab 12/12/23 14:25 Received Cytology [PTH] Routine Pth 12/11/23 19:34 Ordered Pathology: Surgical [PTH] Routine Pth 12/12/23 14:33 Received Radiology Impressions Chest X-Ray 12/06/23 12:53 IMPRESSION: No acute chest abnormality. Head CT 12/06/23 12:59 IMPRESSION: No acute intracranial abnormality. ASSESSMENT: ASPECTS (Emilie Stroke Program Early CT Score) is 10. Chest/Abdomen/Pelvis CT 12/06/23 14:05 IMPRESSION: Malignant adenopathy in the right axilla IMPRESSION: 1. Large area of mass effect involving the liver highly suspicious for infiltrating neoplasm 2. Edematous nodules involving both adrenal glands suggesting metastatic disease Liver Ultrasound 12/06/23 20:09 IMPRESSION: 1. No hepatic mass identified, as clinically questioned. Further evaluation with contrast enhanced abdomen MRI should be considered in the adequate clinical setting. 2. Subcentimeter gallbladder polyp versus inspissated sludge. Head MRI 12/08/23 06:00 IMPRESSION: 1. No evidence of restricted diffusion to suggest acute ischemia. 2. No hemosiderin on the susceptibly weighted images. 3. Mild small vessel changes with mild parenchymal volume loss. 4. No evidence of enhancing intracranial metastatic disease. Abdomen MRI 12/09/23 11:00 IMPRESSION: 1. Poorly defined linear area in the right hepatic lobe with peripheral enhancement on the delayed images. Findings can be related to infection versus metastasis. 2. Stable right adrenal nodule. COMMENTS: Consistent with the [employer]'s Incidental Findings Committee white paper (J Am Jayesh Radiol 2018): Any incidental renal lesion less than 1 cm or classified as too small to characterize, or any incidental cystic renal lesion characterized as simple-appearing, is likely benign. No follow-up imaging is recommended for these lesions per consensus recommendations based on imaging criteria. Lymph Node Biopsy Ultrasound 12/12/23 17:17 IMPRESSION: 1. Uncomplicated ultrasound-guided RIGHT axillary lymph node biopsy. 2. No immediate complications. 3. Pathology is pending. Microbiology 12/08/23 11:22 Blood Blood Culture - Final NO GROWTH AFTER 5 DAYS 12/08/23 11:20 Blood Blood Culture - Final NO GROWTH AFTER 5 DAYS 12/12/23 14:25 Lymph Node Gram Stain - Final 12/12/23 14:25 Lymph Node Tissue Culture - Preliminary 12/11/23 19:59 Stool Stool Lactoferrin - Final 12/11/23 19:59 Stool Occult Blood (FIT) - Final 12/06/23 13:30 Blood Blood Culture - Final Staphylococcus warneri Bacillus subtilis 12/06/23 13:30 Blood Blood Culture - Final Bacillus subtilis Staphylococcus warneri Echocardiogram: CONCLUSIONS Technically poor quality study. Only good view is the apical view. The left ventricle is likely normal in size and function. Ejection fraction is about 60%. Grade 1 diastolic dysfunctionnormal left ventricular size, systolic function and wall thickness, with no regional wall motion abnormalities. Structurally normal mitral valve. Trace mitral valve regurgitation. Structurally normal trileaflet aortic valve. Mild aortic valve regurgitation. There are no prior echocardiogram studies to compare. Dr. Ok Huffman MD (Electronically Signed) Final Date: 06 December 2023 18:35 Lexiscan stress test: PERFUSION FINDINGS There is a small sized area of inconsistent, perfusion defect in the apical lateral wall that improves on prone imaging. Likely attenuation artifact. No evidence of ischemia. FUNCTIONAL RESULTS (calculated via Gated SPECT) Stress Image LV EF (%): 78 Stress EDV (mL):76 TID: 1.05 Stress ESV (mL):17 FUNCTIONAL FINDINGS: There is normal left ventricular systolic function. IMPRESSIONS 1. Attenuation artifact seen in the apical lateral wall. No evidence of ischemia. 2. LV systolic function is normal Arnel Bennett MD (Electronically Signed) Final Date: 13 December 2023 09:12 Laboratory Results WBC 8.66 10^3/uL (3.29-11.43) 12/12/23 05:25 RBC 4.61 10^6/uL (3.85-5.65) 12/12/23 05:25 Hgb 12.40 g/dL (11.27-16.99) 12/12/23 05:25 Hct 40.1 % (36-47) 12/12/23 05:25 MCV 87.0 fl (85-98) 12/12/23 05:25 MCH 26.9 pg (27-33) L 12/12/23 05:25 MCHC 30.9 g/dL (30-55) 12/12/23 05:25 RDW 15.1 % (12.1-15.1) 12/12/23 05:25 Plt Count 230 10^3/cmm (157-399) 12/12/23 05:25 MPV 10.8 fL (7.4-10.4) H 12/12/23 05:25 Neut % (Auto) 54.9 % 12/12/23 05:25 Lymph % (Auto) 24.0 % 12/12/23 05:25 Milam % (Auto) 10.7 % 12/12/23 05:25 Eos % (Auto) 9.1 % 12/12/23 05:25 Baso % (Auto) 0.6 % 12/12/23 05:25 Neut # (Auto) 4.75 10^3/uL (1.8-7.7) 12/12/23 05:25 Lymph # (Auto) 2.1 10^3/uL (0.8-4.8) 12/12/23 05:25 Milam # (Auto) 0.9 10^3/uL (0.2-0.9) 12/12/23 05:25 Eos # (Auto) 0.8 10^3/uL (0.0-0.8) 12/12/23 05:25 Baso # (Auto) 0.1 10^3/uL (0.0-0.1) 12/12/23 05:25 Nucleated RBC % (auto) 0 % 12/12/23 05:25 Nucleated RBCs # 0.0 /100WBC 12/12/23 05:25 PT 15.60 SECONDS (12.1-14.9) H 12/06/23 13:10 INR 1.20 (0.8-1.2) 12/06/23 13:10 APTT 25.7 SECONDS (23.9-36.7) 12/06/23 13:10 Specimen Type Arterial 12/06/23 14:02 Sample Site Radial, left 12/06/23 14:02 ABG pH 7.59 (7.35-7.45) H* 12/06/23 14:02 ABG pCO2 26.0 mmHg (35-45) L 12/06/23 14:02 ABG pO2 92.5 mmHg (80.0-100.0) 12/06/23 14:02 ABG PO2/FiO2 Ratio 440 12/06/23 14:02 ABG HCO3 24.9 mmol/L (22-26) 12/06/23 14:02 ABG O2 Saturation 97.4 12/06/23 14:02 ABG Base Excess 4.7 mmol/L (-2.0-2.0) H 12/06/23 14:02 Curry Test Pos 12/06/23 14:02 A-a O2 Gradient 3.0 mmHg (5-10) L 12/06/23 14:02 Hematocrit 52.3 % (37-47) H 12/06/23 14:02 Hgb O2 Saturation 96.9 % (95-100) 12/06/23 14:02 Carboxyhemoglobin 0.5 %THgb (0.4-20.1) 12/06/23 14:02 Methemoglobin 0.0 % (0.4-1.5) L 12/06/23 14:02 Total Hemoglobin 17.1 g/dL (12-16) H 12/06/23 14:02 Sodium 134.0 mmol/L (131-143) 12/06/23 14:02 Potassium 3.4 mmol/L (3.5-5.0) L 12/06/23 14:02 Glucose 176.0 mg/dL (70-115) H 12/06/23 14:02 Ionized Calcium 1.2 mmol/L (1.1-1.4) 12/06/23 14:02 O2 Delivery Device Room air 12/06/23 14:02 FiO2 21.0 % 12/06/23 14:02 Utility Mechanic ID Monro 12/06/23 14:02 Sodium 142 mmol/L (136-145) 12/12/23 05:25 Potassium 4.2 mmol/L (3.5-5.1) 12/12/23 05:25 Chloride 105 mmol/L (98-107) 12/12/23 05:25 Carbon Dioxide 27 mmol/L (22-29) 12/12/23 05:25 Anion Gap 14.2 (5-19) 12/12/23 05:25 BUN 10 mg/dL (8-23) 12/12/23 05:25 Creatinine 0.9 mg/dL (0.5-0.9) 12/12/23 05:25 GFR Calculation Not Reportable 12/12/23 05:25 Glucose 99 mg/dL (65-115) 12/12/23 05:25 POC Glucose 127 mg/dL (70-110) H 12/10/23 18:00 Calculated Osmolality 293 mOsm/kg (285-295) 12/12/23 05:25 Lactic Acid 5.0 mmol/L (0.5-2.2) H* 12/06/23 13:10 Lactic Acid (Sepsis) 3.3 mmol/L (0.5-2.2) H 12/06/23 16:09 Calcium 8.9 mg/dL (8.5-10.5) 12/12/23 05:25 Magnesium 1.8 mg/dL (1.7-2.3) 12/07/23 05:29 Total Bilirubin 0.3 mg/dL (0.15-1.2) 12/12/23 05:25 AST 82 U/L (0-32) H 12/12/23 05:25 ALT 153 U/L (0-33) H 12/12/23 05:25 Alkaline Phosphatase 66 U/L (35-105) 12/12/23 05:25 Creatine Kinase 78 U/L (26-192) 12/06/23 13:10 Troponin T Baseline 587 ng/L (0-10) H* 12/06/23 13:10 Troponin T 120 Minute 460.9 ng/L (0-10) H 12/06/23 15:03 Delta Troponin T -126.1 ABS# (0-10) L 12/06/23 15:03 Troponin T Hi Sens 6Hr 453.8 ng/L (0-10) H 12/06/23 19:41 Troponin T Hi Sens 6Hr Delta -133.2 ng/L (0-12) L 12/06/23 19:41 NT-Pro-B Natriuret Pep 56670 pg/mL (0-450) H 12/06/23 13:10 Total Protein 6.4 g/dL (6.6-8.7) L 12/12/23 05:25 Albumin 2.9 g/dL (3.5-5.2) L 12/12/23 05:25 Globulin 3.5 g/dL (1.3-4.6) 12/12/23 05:25 Lipase 23 U/L (13-60) 12/06/23 13:10 Tumor Marker AFP 2.8 ng/mL (0-8.3) 12/06/23 19:41 TSH 3.37 uIU/mL (0.27-4.20) 12/06/23 19:41 Random Cortisol 20.12 ug/dL (2.47-19.5) H 12/06/23 13:10 Urine Color Yellow (Yellow) 12/06/23 13:29 Urine Appearance Clear (CLEAR) 12/06/23 13:29 Urine pH 5 (5-7) 12/06/23 13:29 Ur Specific [place] 1.020 (1.005-1.030) 12/06/23 13:29 Urine Protein 2+ (Negative) H 12/06/23 13:29 Urine Glucose (UA) Norm (Normal) 12/06/23 13:29 Urine Ketones 1+ (Negative) H 12/06/23 13:29 Urine Blood 3+ (Negative) H 12/06/23 13:29 Urine Nitrate Negative (Negative) 12/06/23 13:29 Urine Bilirubin Neg (Negative) 12/06/23 13:29 Urine Urobilinogen Norm mg/dL (Negative) 12/06/23 13:29 Ur Leukocyte Esterase Negative (Negative) 12/06/23 13:29 Urine RBC 0-4 /hpf (0-2) H 12/06/23 13:29 Urine WBC Rare /hpf (0-5) 12/06/23 13:29 Ur Squamous Epith Cells Rare /hpf (0-5) 12/06/23 13:29 Amorphous Sediment Not Reportable 12/06/23 13:29 Urine Bacteria Trace /hpf (NONE) 12/06/23 13:29 Urine Opiates Screen Negative ng/mL (Negative) 12/06/23 13:24 Ur Barbiturates Screen Negative ng/mL (Negative) 12/06/23 13:24 Valproic Acid 2.8 ug/mL (50-100) L 12/06/23 19:41 Ur Phencyclidine Scrn Negative ng/mL (Negative) 12/06/23 13:24 Ur Amphetamines Screen Negative ng/mL (Negative) 12/06/23 13:24 U Benzodiazepines Scrn Negative ng/mL (Negative) 12/06/23 13:24 Urine Cocaine Screen Negative ng/mL (Negative) 12/06/23 13:24 U Marijuana (THC) Screen Positive ng/mL (Negative) H 12/06/23 13:24 Serum Ketones Negative (Negative) 12/06/23 13:10 Adenovirus (PCR) Not detected (NOT DETECT) 12/06/23 21:10 Lyme Ab (Western Blot) <0.90 index 12/06/23 16:40 C. pneumoniae DNA (PCR) Not detected (NOT DETECT) 12/06/23 21:10 C. difficile (PCR) Negative (Negative) 12/11/23 19:59 Coronavirus 229E (PCR) Not detected (NOT DETECT) 12/06/23 21:10 E. chaffeensis IgG Ab <1:64 12/06/23 16:40 E. chaffeensis IgM Ab <1:20 12/06/23 16:40 E. chaffeensis Interp See note 12/06/23 16:40 E. chaffeensis Comment Not Reportable 12/06/23 16:40 F. tularensis IgG Ab Negative (Negative) 12/08/23 04:47 F. tularensis IgM Ab Negative (Negative) 12/08/23 04:47 F. tularensis Interpretation See note 12/08/23 04:47 Hepatitis A IgM Ab Non-reactive (Nonreactive) 12/06/23 13:10 Hep Bs Antigen Non-reactive (Nonreactive) 12/06/23 13:10 Hep B Core IgM Ab Non-reactive (Nonreactive) 12/06/23 13:10 Hepatitis C Antibody Non-reactive (Nonreactive) 12/06/23 13:10 HIV 1&2 Ab & HIV 1 Ag Non-reactive (Non-Reactiv) 12/10/23 04:17 HIV 1&2 Antibody Non-reactive (Non-Reactiv) 12/10/23 04:17 Human Metapneumovir PCR Not detected (NOT DETECT) 12/06/23 21:10 Influenza A (H1) PCR Not detected (NOT DETECT) 12/06/23 21:10 Influ A (H1/09) PCR Not detected (NOT DETECT) 12/06/23 21:10 Influenza A (H3) PCR Not detected (NOT DETECT) 12/06/23 21:10 Influenza Type A (PCR) Not detected (NOT DETECT) 12/06/23 21:10 Influenza Type B (PCR) Not detected (NOT DETECT) 12/06/23 21:10 M. pneumoniae (PCR) Not detected (NOT DETECT) 12/06/23 21:10 Parainfluenza 1 (PCR) Not detected (NOT DETECT) 12/06/23 21:10 Parainfluenza 2 (PCR) Not detected (NOT DETECT) 12/06/23 21:10 Parainfluenza 3 (PCR) Not detected (NOT DETECT) 12/06/23 21:10 Parainfluenza 4 (PCR) Not detected (NOT DETECT) 12/06/23 21:10 RSV Type A (PCR) Not detected (NOT DETECT) 12/06/23 21:10 RSV Type B (PCR) Not detected (NOT DETECT) 12/06/23 21:10 Entero/Rhino (PCR) Not detected (NOT DETECT) 12/06/23 21:10 SARS-CoV-2 (PCR) Not detected (NOT DETECT) 12/06/23 21:10 Vitals Last Vital Signs Temp 98.0 F 12/13/23 03:55 Pulse 82 12/13/23 07:30 Resp 15 12/13/23 03:55 BP 146/72 12/13/23 07:30 Pulse Ox 97 12/13/23 03:55 O2 Del Method Room Air 12/13/23 03:55 Discharge Plan Discharge Patient Disposition: Home Condition: Stable Prescriptions: New ciprofloxacin HCl 500 mg Tablet 500 mg PO BID@0900,2100 9 Days Qty: 18 0RF aspirin 81 mg Tablet,Delayed Release (Dr/Ec) 81 mg PO DAILY Qty: 30 0RF linezolid 600 mg Tablet 600 mg PO Q12H 9 Days Qty: 18 0RF amlodipine 5 mg tablet 5 mg PO DAILY Qty: 30 0RF Continued calcium carbonate [Calcium 600] 600 mg calcium (1,500 mg) tablet 600 mg PO DAILY cholecalciferol (vitamin D3) 25 mcg (1,000 unit) capsule 25 mcg PO DAILY divalproex 250 mg tablet,delayed release (DR/EC) 250 mg PO DAILY levothyroxine 75 mcg tablet 75 mcg PO DAILY paroxetine HCl 30 mg tablet 30 mg PO DAILY Nystop 100,000 unit/gram powder 1 applic topical BID PRN (Reason: Skin Irritation) rosuvastatin 10 mg tablet 10 mg PO DAILY Discharge Orders: Discharge Order (Routine); Ordered 12/13/23 Ordered By: Flaco Vanegas Referrals: Himanshu Wilson MD [Physician] - 12/22/23 1:00 pm Discharge Diet: Cardiac Discharge Activity: Resume usual activity and Increase activity as tolerated Patient Instructions: Ciprofloxacin (By mouth), Aspirin (By mouth), Amlodipine (By mouth), Linezolid (By mouth) (Zyvox), Low Fat Diet (DC), Sepsis (DC), Opioid Safety Activity Restrictions/Additional Instructions: Goal blood pressure should be less than 140/90 mmHg. For now take amlodipine 5 mg oral daily. Please check your blood pressure daily at home maintain a blood pressure diary and follow-up with a primary care provider within next 1 week for further adjustment of medication as needed. Please follow-up with your primary care provider regarding the results of her lymph node biopsy. Take linezolid and ciprofloxacin which is the antibiotic twice daily by mouth for Days. Discharge Attestations Time Spent in Discharge Care*: greater than 30 min Specific Discharge Activities: educating patient, educating and/or supporting family/caregiver, discussing with pcp/other providers, discussing with behavioral health case manager/social workers/dc planners, documenting/other paperwork and evaluating patient/reviewing data Status at Discharge: Cognitive status at discharge: cognitively intact , Behavioral status at discharge: cooperative , Functional status at discharge: independent ambulation , Overall status at discharge: patient is back to baseline Quality Metrics Clinical Quality Measures [ No reported AMI, CVA or VTE this stay] Coding Level of Care Code 62129 Total time (in minutes) for Discharge: 60 Diagnoses Dyslipidemia E78.5 Liver mass R16.0 Adrenal mass E27.8 Renal insufficiency N28.9 Troponin level elevated R79.89
[2023-12-13] MEDS: ciprofloxacin 500 mg Tablet PO (10:02)
--- NOTE | 2023-12-13 11:28 | PC.SOCIAL ---
IMM Updated Updated pt on IMM. No questions voiced. Provided pt a copy. Initialed, dated, & timed news copy editor y in chart.
[2023-12-13 11:34] VITALS: BP 138/94; PULSE 70; RESP 18; TEMP 36.9; O2SAT 97
--- NOTE | 2023-12-13 13:11 | PC.NURSE ---
pt prefers meds to bed faxed new meds to [facility] pharmacy.
--- NOTE | 2023-12-13 14:37 | NMCV_ITS ---
NM ernestina perf SPECT r/s* [id number] Muna Lynn Age: 73 Gender: F : 1950 Exam Date: 12/13/2023 14:37 Ordering Phys: Flaco Vanegas MD Technologist: ADÁN Dove Exam Location: [facility] Indications: CP STRESS TEST Please see separate stress test report in [facility] for full findings IMAGE PROTOCOL Rest/Stress 1 Lexiscan Day Radiopharmaceutical Dose (mCi) Administration Site Administered by Rest: Tc-99m 10.6 IV ADÁN Dove Sestamibi Stress:Tc-99m 32.6 IV ADÁN Dove Sestamibi Rest: 13-Dec-2023 60 Discovery 630 Stress: 13-Dec-2023 30 Discovery 630 0.4mg Lexiscan. Images obtained in supine and prone position. SPECT RESULTS Technical Quality: Excellent Raw Data Analysis: Normal Image Corrections: No attenuation or motion correction applied Summed Stress Score: 2 Summed Rest Score: 2 Summed Difference Score: 0 PERFUSION FINDINGS There is a small sized area of inconsistent, perfusion defect in the apical lateral wall that improves on prone imaging. Likely attenuation artifact. No evidence of ischemia. FUNCTIONAL RESULTS (calculated via Gated SPECT) Stress Image LV EF (%): 78 Stress EDV (mL):76 TID: 1.05 Stress ESV (mL):17 FUNCTIONAL FINDINGS: There is normal left ventricular systolic function. IMPRESSIONS 1. Attenuation artifact seen in the apical lateral wall. No evidence of ischemia. 2. LV systolic function is normal Arnel Bennett MD (Electronically Signed) Final Date: 13 December 2023 09:12 S
[2023-12-13] MEDS: neomycin-poly-bacitracin oint 28 gm 1 APPLIC TOPICAL (16:57)
[2023-12-13 17:25] LABS: RMSF IGG NOT DETECTED; RMSF IGM NOT DETECTED
--- NOTE | 2023-12-13 18:13 | PC.NURSE ---
Discharge Note Patient discharged to home via bed accompanied by . Discharge instructions reviewed with patient and/or maintenance representative. Mobile pharmacy medications and/or prescriptions provided. Belongings/home medications returned.
[2023-12-14 12:44] LABS: Lymphoma Profile (BBPL) See Report
[2023-12-18 00:04] LABS: Bartonella Henselae IgG AB NEGATIVE; Bartonella Henselae IgM AB NEGATIVE; Bartonella Quintana IgG AB NEGATIVE
[2023-12-20 01:23] LABS: Brucella AB Agglutination <1:80 titer
== END 2023-12-13 18:10 | disposition home or self-care (01) | DRG 312 ==
LOC: ER 15:32 → MEDSURG 17:11 → CSU 12-12 14:30
PROVIDERS: Student in an Organized Health Care Education/Training Program; Admitting Provider Internal Medicine; Emergency Provider Family Medicine; PCP Family Medicine; Visit Provider Student in an Organized Health Care Education/Training Program
DX: R55 Syncope and collapse (principal); E87.20 Acidosis, unspecified; I24.89 Other forms of acute ischemic heart disease; N17.9 Acute kidney failure, unspecified; Z11.52 Encounter for screening for COVID-19; E78.5 Hyperlipidemia, unspecified; F32.A Depression, unspecified; E03.9 Hypothyroidism, unspecified; R16.0 Hepatomegaly, not elsewhere classified; E27.9 Disorder of adrenal gland, unspecified; N28.9 Disorder of kidney and ureter, unspecified; R59.0 Localized enlarged lymph nodes; T14.8XXA Other injury of unspecified body region, initial encounter; B95.8 Unspecified staphylococcus as the cause of diseases classified elsewhere; Z88.0 Allergy status to penicillin; R47.89 Other speech disturbances; R19.7 Diarrhea, unspecified
CPT/HCPCS: 36415; 36416; 36600; 38505; 70450; 70553; 71045; 71275; 74177; 74183; 76705; 76942; 78452; 80051; 80053; 80074; 80164; 80306; 81001; 82009; 82105; 82274; 82330; 82533; 82550; 82805; 82962; 83605; 83630; 83690; 83735; 83880; 84443; 84484; 85025; 85610; 85730; 86160; 86611; 86618; 86622; 86666; 86668; 86757; 87040; 87045; 87070; 87150; 87176; 87177; 87186; 87205; 87209; 87427; 87449; 87486; 87493; 87581; 87633; 87806; 88184; 88185; 88305; 93005; 93017; 93306; 93880; 96365; 96372; 96375; 99285; A9500; A9577; C9113; J0744; J1650; J1956; J2020; J2785; J3490; J7030; J7120; Q9967

== ENCOUNTER 2024-01-08 08:00 | Outpatient (CLI) | payer MEDICARE, OTHER, SELFPAY ==
--- NOTE | 2024-01-08 08:00 | CT_ITS ---
WS: [id number] CT CHEST AND ABDOMEN WITH CONTRAST HISTORY: liver mass TECHNIQUE: Axial imaging is performed through the chest and abdomen with IV and oral contrast.. Sagit raoul and coronal reformats. All CT scans at [facility] use at least one of these dose optimiza tion techniques: automated exposure control; mA and/or kV adjustment per patient size (includes targe roger exams where dose is matched to clinical indication); or iterative reconstruction. CONTRAST: Omnipaque 350; 100 mL IV. DLP: 768.20 mGy.cm COMPARISON: 12/06/2023, MRI 12/09/2023, liver ultrasound 12/06/[address]: Lungs are well aerated. There is a single 5 mm noncalcified nodule in the LEFT upper lobe, image 13 o f series 6. Benign calcification posterior RIGHT upper lobe. There is an additional area of very slig ht interstitial thickening in the lingula. Small amount of fluid is noted in the RIGHT inferior pulmo nary venous recess. LEFT AP window lymph node 1.3 cm . No hilar adenopathy. Reidentified are the abno rmal lymph nodes in the RIGHT axilla with the largest measuring 3.5 x 3.0 cm. These are highly suspic ious for malignancy. No LEFT axillary lymph nodes. By CT the breast tissue is negative. Abdomen CT: Reidentified is an abnormal linear low attenuation region in the LEFT lobe of the liver. This is betw een the junction of the LEFT and RIGHT lobes of the liver but does not connect to the ligamentum rashaad s or falciform ligament. This area of abnormal attenuation and decreased enhancement is less prominen t than seen on a prior CT of 12/06/2023. Decreased attenuation is slightly branching extends from the periphery of the liver centrally towards the justin hepatis. On the delayed imaging this area is becoming less noticeable and nearly isodense to the remaining liver. No bile duct dilatation. Gallbladder appears negative. Spleen is negative. No pancreatic mass or duct dilatation. Portal vein is well opacified. Portal vein is better visualized on today's examination. SMV is normal. Enlarged RIGHT adrenal gland with elevated Hounsfield units. RIGHT adrenal gland measures 3.2 x 2.2 c m. There is less fat stranding around the adrenal gland. The LEFT adrenal gland contains mild fat str anding but is becoming less edematous in appearance. Kidneys are normal size. Cortical cyst lower jason e RIGHT kidney. There is no renal obstruction. Mild atherosclerosis aorta. Proximal celiac axis and S MA are patent. Nondistended stomach. No small bowel obstruction. No adenopathy and no ascites within the abdomen. Th e pelvis was not included in this order. There is constipation. Increase in thoracic kyphosis. No destructive bone lesions are identified. CT/CT chest abd w con*[id number] IMPRESSION: 1. Reidentified is the RIGHT axillary lymphadenopathy. Highly suspicious for m etastatic disease until proven otherwise. Largest lymph node 3.5 x 3.0 cm. 2. Indeterminate but slightly enlarged AP window lymph node that 1.3 cm. 3. Single noncalcified subcentimeter nodule LEFT upper lobe. Indeterminate for metastatic disease. 4. The area of abnormal attenuation suspicious for neoplasm on prior imaging s tudy between the RIGHT and LEFT lobes of the liver is becoming less apparent. T his is not as significant as on prior studies but still present in a branching linear pattern. There is no mass associated with this area. The portal vein is larger in size today and the RIGHT and LEFT portal veins are better visualized. I wonder if these changes may been related to some ischemic change in the live r that is resolving and improving. Further evaluation of the liver does need to be performed. It would be important to exclude cholangiocarcinoma. PET/CT imag ing would probably be most helpful at this time. 5. RIGHT adrenal mass is reidentified measuring 3.2 x 2.2 cm. There is less st randing around the adrenal mass as compared to the prior study. Neoplasm or met astatic disease needs to be excluded still. The LEFT adrenal gland was very ankit matous on the prior study but that is also improving and there is no associated mass but still a small amount of edema. Correlate for resolving adrenal crisis . PET/CT imaging also may be helpful to evaluate the RIGHT adrenal mass. 6. No adenopathy within the abdomen.
[2024-01-08] MEDS: iohexol 350 mg/mL 500 mL Btl (per mL) IV (08:47)
== END 2024-01-08 08:01 | disposition home or self-care (01) ==
PROVIDERS: PCP Family Medicine Adult Medicine; Visit Provider Student in an Organized Health Care Education/Training Program
DX: R16.0 Hepatomegaly, not elsewhere classified (principal); R59.0 Localized enlarged lymph nodes; R91.1 Solitary pulmonary nodule; D35.01 Benign neoplasm of right adrenal gland; M40.204 Unspecified kyphosis, thoracic region
CPT/HCPCS: 71260; 74160; Q9967

== ENCOUNTER → 2024-01-30 10:52 | Outpatient (BNVA) | payer MEDICARE, OTHER, SELFPAY | PROVIDERS: PCP Family Medicine Adult Medicine; Visit Provider Internal Medicine | DX: E27.9 Disorder of adrenal gland, unspecified (principal); R59.9 Enlarged lymph nodes, unspecified | CPT/HCPCS: 99204 ==

== ENCOUNTER 2024-04-04 16:30 | Outpatient (CLI) | payer MEDICARE, OTHER, SELFPAY ==
[2024-04-04 17:28] LABS: Basophils % 0.5 %; Eosinophils # 0.6 10^3/uL (0.0-0.8); Eosinophils % 9.6 %; Hematocrit 49.2 % (36-47); Lymphocytes # 2.3 10^3/uL (0.8-4.8); Lymphocytes % 39.2 %; Mean Corpuscular HGB Conc 31.7 g/dL (30-55); Mean Corpuscular Hemoglobin 26.9 pg (27-33); Mean Corpuscular Volume 84.8 fl (85-98); Mean Platelet Volume 9.7 fL (7.4-10.4); Monocytes # 0.2 10^3/uL (0.2-0.9); Monocytes % 2.8 %; Neutrophils # 2.75 10^3/uL (1.8-7.7); Neutrophils % 47.4 %; Nucleated Red Blood Cells % 0 %; Platelet Count 329 10^3/cmm (157-399); White Blood Count 5.81 10^3/uL (3.29-11.43)
[2024-04-04 17:48] LABS: Alanine Aminotransferase 19 U/L (0-33); Albumin Level 4.4 g/dL (3.5-5.2); Alkaline Phosphatase 39 U/L (35-105); Anion Gap 19.3 (5-19); Aspartate Amino Transferase 20 U/L (0-32); Blood Urea Nitrogen 24 mg/dL (8-23); Calcium 11.1 mg/dL (8.5-10.5); Carbon Dioxide 24 mmol/L (22-29); Chloride 95 mmol/L (98-107); Globulin 2.8 g/dL (1.3-4.6); Glucose 165 mg/dL (65-115); Osmolality Calculated 286 mOsm/kg (285-295); Potassium 4.3 mmol/L (3.5-5.1); Sodium 134 mmol/L (136-145); Total Bilirubin 0.7 mg/dL (0.15-1.2); Total Protein 7.2 g/dL (6.6-8.7)
[2024-04-04 18:06] LABS: Slide Review Slide Review Perform
== END 2024-04-04 16:31 | disposition home or self-care (01) ==
LOC: LAB 16:32
PROVIDERS: PCP Family Medicine Adult Medicine; Visit Provider Internal Medicine Medical Oncology
DX: C81.90 Hodgkin lymphoma, unspecified, unspecified site (principal)
CPT/HCPCS: 36415; 80053; 85025; 87040

== ENCOUNTER → 2024-10-07 11:11 | Outpatient (BNVA) | payer MEDICARE, OTHER, SELFPAY | PROVIDERS: PCP Family Medicine Adult Medicine; Visit Provider Podiatrist Foot & Ankle Surgery | DX: L60.3 Nail dystrophy (principal); L84 Corns and callosities; M20.41 Other hammer toe(s) (acquired), right foot | CPT/HCPCS: 99204 ==

== ENCOUNTER → 2024-10-21 14:13 | Outpatient (BNVA) | payer MEDICARE, OTHER, SELFPAY | PROVIDERS: PCP Family Medicine Adult Medicine; Referring Provider Family Medicine; Visit Provider Nurse Practitioner Family | DX: D23.4 Other benign neoplasm of skin of scalp and neck (principal); L82.1 Other seborrheic keratosis; L65 Other nonscarring hair loss; D18.01 Hemangioma of skin and subcutaneous tissue; L81.4 Other melanin hyperpigmentation; L57.8 Other skin changes due to chronic exposure to nonionizing radiation; D48.5 Neoplasm of uncertain behavior of skin; L57.0 Actinic keratosis | CPT/HCPCS: 11102; 17000; 99203 ==

== ENCOUNTER → 2025-01-07 11:05 | Outpatient (BNVA) | payer MEDICARE, OTHER, SELFPAY | PROVIDERS: PCP Family Medicine; Visit Provider Podiatrist Foot & Ankle Surgery | DX: L60.3 Nail dystrophy (principal); L84 Corns and callosities; M20.41 Other hammer toe(s) (acquired), right foot | CPT/HCPCS: 99213 ==

== ENCOUNTER → 2025-03-24 11:10 | Outpatient (BNVA) | payer MEDICARE, OTHER, SELFPAY | PROVIDERS: PCP Family Medicine; Visit Provider Family Medicine | DX: Z13.6 Encounter for screening for cardiovascular disorders (principal); E03.9 Hypothyroidism, unspecified; E78.5 Hyperlipidemia, unspecified | CPT/HCPCS: 80053; 80061; 82607; 84439; 84443; 85025 ==

== ENCOUNTER → 2025-03-26 10:52 | Outpatient (BNVA) | payer MEDICARE, OTHER, SELFPAY | PROVIDERS: PCP Family Medicine; Visit Provider Family Medicine | DX: K52.9 Noninfective gastroenteritis and colitis, unspecified (principal) | CPT/HCPCS: 87045; 87177; 87209; 87338; 87427; 87449 ==

== ENCOUNTER 2025-04-21 13:22 | Outpatient (CLI) | payer MEDICARE, OTHER, SELFPAY | END 2025-04-21 13:23 | disposition home or self-care (01) | LOC: LAB 13:22 | PROVIDERS: PCP Family Medicine; Visit Provider Family Medicine | DX: K52.9 Noninfective gastroenteritis and colitis, unspecified (principal) | CPT/HCPCS: 83630 ==

== ENCOUNTER 2025-04-28 13:30 | Outpatient (CLI) | payer MEDICARE, OTHER, SELFPAY | END 2025-04-28 13:31 | disposition home or self-care (01) | LOC: LAB 13:33 | PROVIDERS: PCP Family Medicine; Visit Provider Family Medicine | DX: K52.9 Noninfective gastroenteritis and colitis, unspecified (principal) | CPT/HCPCS: 87328; 87329 ==

== ENCOUNTER → 2025-05-14 09:15 | Outpatient (BNVA) | payer MEDICARE, OTHER, SELFPAY | PROVIDERS: PCP Family Medicine; Visit Provider Surgery | DX: K52.9 Noninfective gastroenteritis and colitis, unspecified (principal) | CPT/HCPCS: 99204 ==

== ENCOUNTER 2025-05-15 11:41 | Outpatient (CLI) | payer MEDICARE, OTHER, SELFPAY ==
[2025-05-15 14:05] LABS: C.Diff PCR (Lab) POSITIVE (Negative); Clostridioides Difficile Toxin NEGATIVE (Negative)
== END 2025-05-15 11:42 | disposition home or self-care (01) ==
LOC: LAB 11:43
PROVIDERS: PCP Family Medicine; Visit Provider Surgery
DX: K52.9 Noninfective gastroenteritis and colitis, unspecified (principal)
CPT/HCPCS: 87324; 87493